=== PATIENT | female | born 1995 | race Caucasian/White ===

== ENCOUNTER → 2018-12-16 | Outpatient (CLI) | payer MEDICAID ==
--- NOTE | 2018-12-16 08:37 | US ---
EXAMINATION TYPE: Transabdominal DATE OF EXAM: 12/16/2018 8:08 AM COMPARISON: NONE CLINICAL HISTORY: Z36 Confirm dates and viability. EXAM PERFORMED: Transvaginal (TV) and Transabdominal (TA) EXAM MEASUREMENTS: GESTATIONAL AGE / DATING Physician Established: Not yet established Dates by LMP: 09/23/2018 (12 weeks/0 days) EDC: 06/30/19 Dates by First Scan: No previous this is first scan Dates by Current Scan for: No IUP seen at this time MATERNAL ANATOMY Uterus: 10.3 x 7.6 x 7.6 cm Right Ovary: 2.5 x 1.5 x 1.9 cm Left Ovary: 3.0 x 2.7 x 1.3 cm Post CDS / Adnexa: wnl Presence of free fluid: none Presence of corpus luteal cyst: not seen GESTATION / SURVEY CRL: not seen with certainty MSD: 3.6 cm (9 weeks/0 days) Yolk Sac (normal less than 6mm): 0.7cm Date of LMP: 09/23/2018 Beta HcG (if available): bloodwork being done today Gestational sac with two elliptical areas and debris. No definite pole seen. Color-flow fails to demonstrate any internal flow within the gestational sac. IMPRESSION: Abnormally enlarged yolk sac is seen within the gestational sac however no pole is identified. Additionally there is debris within the gestational sac diffusely. Findings are abnormal and given th e mean sac diameter of 3.6 cm findings are diagnostic for failed .
[2018-12-16 08:57] LABS: HCT 36.8 % (34.0-46.0); HGB 11.8 gm/dL (11.4-16.0); MCH 28.4 pg (25.0-35.0); MCV 88.8 fL (80.0-100.0); Mean Platelet Volume 7.4; Platelet Count 238 k/uL (150-450); RBC 4.15 m/uL (3.80-5.40); RDW 14.6 % (11.5-15.5); WBC 6.3 k/uL (3.8-10.6)
[2018-12-16 09:09] LABS: African American GFR (CKD) >90 (>60 ml/min/1.73 sqM); Glucose 89 mg/dL (74-99)
[2018-12-16 20:13] LABS: Hepatitis B Surface Antigen Non-Reactive (Non-Reactive)
[2018-12-17 04:16] LABS: Toxoplasma Antibody (IgG) <3.0 IU/mL (<7.2); Toxoplasma Antibody (IgM) <3.0 AU/mL (<8.0)
== END | disposition home or self-care (01) ==
LOC: RADUSWWP 07:36
PROVIDERS: ATTEND Obstetrics & Gynecology
DX: O02.89 Other abnormal products of conception (principal)
CPT/HCPCS: 36415; 76801; 76817; 82565; 82947; 84702; 85027; 86762; 86777; 86778; 86780; 86850; 86900; 86901; 87340

== ENCOUNTER → 2018-12-25 | Outpatient (CLI) | payer MEDICAID | END | disposition home or self-care (01) | LOC: LABWHC1 08:41 | PROVIDERS: ATTEND Obstetrics & Gynecology | DX: O20.0 Threatened abortion (principal) | CPT/HCPCS: 36415; 84702 ==

== ENCOUNTER → 2019-01-04 | Outpatient (CLI) | payer MEDICAID ==
--- NOTE | 2019-01-04 11:02 | US ---
EXAMINATION TYPE: Transabdominal DATE OF EXAM: 01/04/2019 10:45 AM COMPARISON: US 12/16/18 CLINICAL HISTORY: O02.0 Blighted ovum and nonhydatidiform mole. EXAM PERFORMED: Transvaginal (TV) and Transabdominal (TA) EXAM MEASUREMENTS: GESTATIONAL AGE / DATING Physician Established: Not established Dates by LMP: 09/23/18 (14 weeks/5 days) EDC: 06/30/19 Dates by First Scan: No pole seen Dates by Current Scan for: No IUP seen MATERNAL ANATOMY Uterus: 8.9 x 6.7 x 4.5 cm Right Ovary: 2.4 x 1.9 x 1.3 Left Ovary: 2.4 x 4.8 x 1.5 Post CDS / Adnexa: wnl Presence of free fluid: no Presence of corpus luteal cyst: no Presence of subchorionic bleed: no GESTATION / SURVEY CRL: Not seen MSD: Not seen Yolk Sac (normal less than 6mm): Not seen Heart Rate: Not seen bpm IUP: Not seen Date of LMP: 09/23/18 Beta HcG (if available): Thickened endometrium. Patient actively bleeding. No Gestational sac, pole or yolk sac seen thi s time. IMPRESSION: Spontaneous . The previously noted gestational sac has passed in the interim. The endometrium is slightly heterogenous measuring 1.0 cm. No current sonographic concern for retained p roducts however there is subsequent clinical concern repeat short-term ultrasound could be performed.
== END | disposition home or self-care (01) ==
LOC: RADUSWWP 10:23
PROVIDERS: ATTEND Obstetrics & Gynecology
DX: O03.9 Complete or unspecified spontaneous abortion without complication (principal); O02.0 Blighted ovum and nonhydatidiform mole
CPT/HCPCS: 76801; 76817; 84702

== ENCOUNTER 2020-10-22 10:22 | Emergency (ER) | payer MEDICAID ==
[2020-10-22 10:42] VITALS: RESP 18
--- NOTE | 2020-10-22 11:41 | ED ---
Animal Bite HPI - General Chief Complaint: Animal Bite Stated Complaint: Inquicker-Cat bite Time Seen by Provider: 10/22/20 10:56 Source: patient Mode of arrival: ambulatory Limitations: no limitations - History of Present Illness Initial Comments: Patient is a 25-year-old female presenting to the emergency Department with complaints of Bite wounds to her left hand that happened approximately 3 AM this morning. Patient states she was awoken in the night by her cat biting her left hand. She has no active bleeding at this time. Her cat is mostly in the house, is up-to-date with vaccines. Patient also update with her tetanus vaccine. She's had no fevers or chills. She has no further complaints. - Related Data Previous Rx's Medication Instructions Recorded Amoxicillin/Potassium Clav 1 tab PO BID 7 Days #14 tab 10/22/20 [Augmentin 875-125 Tablet] Allergies Allergy/AdvReac Type Severity Reaction Status Date / Time No Known Allergies Allergy Verified 10/22/20 10:38 Review of Systems ROS Statement: Those systems with pertinent positive or pertinent negative responses have been documented in the HPI. ROS Other: All systems not noted in ROS Statement are negative. Past Medical History Past Medical History: No Reported History History of Any Multi-Drug Resistant Organisms: None Reported Past Surgical History: Adenoidectomy, Tonsillectomy Additional Past Surgical History / Comment(s): NOSE SURGERY DUE TO IT BEING BROKEN. Past Anesthesia/Blood Transfusion Reactions: No Reported Reaction Past Psychological History: No Psychological Hx Reported Smoking Status: Current every day smoker Past Alcohol Use History: Daily Past Drug Use History: Prescription Drug Abuse General Exam - General Exam Comments Initial Comments: GENERAL: Patient is well-developed and well-nourished. Patient is nontoxic and in no acute distress. HEAD: Atraumatic, normocephalic. EYES: Pupils equal round and reactive to light, extraocular movements intact, sclera anicteric, conjunctiva are normal. Eyelids were unremarkable. LUNGS: Unlabored respirations. Breath sounds clear to auscultation bilaterally and equal. No wheezes rales or rhonchi. HEART: Regular rate and rhythm without murmurs, rubs or gallops. ABDOMEN: Soft, nontender, normoactive bowel sounds. No guarding, no rebound. No masses appreciated. : Deferred MUSCULOSKELETAL: Patient has multiple Bite wounds and scratches to her left hand, this is mildly swollen some mild erythema present. She has neurovascular intact. She Is able to fully extend and flex all of her fingers. No clubbing or cyanosis. NEUROLOGICAL: Patient is alert and oriented x 3. SKIN: Warm, Dry, normal turgor. She has multiple Bite wounds and abrasions to her left hand, palmar and dorsal aspects. She does have some mild swelling and erythema present. Limitations: no limitations Course Vital Signs 10/22/20 10/22/20 10:38 12:15 Temperature 98.4 F 98.0 F Pulse Rate 67 69 Respiratory 18 18 Rate Blood Pressure 117/81 127/80 O2 Sat by Pulse 100 99 Oximetry Medical Decision Making - Medical Decision Making Patient is a 25-year-old female here with multiple cat bite wounds and abrasions, scratches to her left hand that happened about 3 AM this morning. This is her house cat, up-to-date with vaccines, patient is also up-to-date with her vaccines. No fevers. She does have multiple small bite wounds and abrasions to the dorsal and palmar aspect of her left hand. She has some mild swelling present, some very mild erythema. Patient will be started on Augmentin, recommended ice, elevation. Also recommended Tylenol or Motrin for discomfort. She is agreeable to this and is stable for discharge. Return parameters were discussed with her and she verbalized understanding. Case discussed with Dr. Poon. Disposition Clinical Impression: Cat bite of left hand Disposition: HOME SELF-CARE Condition: Stable Instructions (If sedation given, give patient instructions): Animal Bite (ED) Additional Instructions: Please return to the Emergency Department if symptoms worsen or any other concerns. Please take antibiotics as prescribed. Take Tylenol and Motrin for pain and swelling control. Use ice the area, elevation. Prescriptions: Amoxicillin/Potassium Clav [Augmentin 875-125 Tablet] 1 tab PO BID 7 Days #14 tab Is patient prescribed a controlled substance at d/c from ED?: No Referrals: Suzanne Ramos MD [Primary Care Provider] - 1-2 days Time of Disposition: 11:41
[2020-10-22 12:15] VITALS: BP 127/80; PULSE 69; TEMP 98
== END 2020-10-22 12:15 | disposition home or self-care (01) ==
LOC: EC 10:22
DX: S61.452A Open bite of left hand, initial encounter (principal); F17.200 Nicotine dependence, unspecified, uncomplicated; W55.01XA Bitten by cat, initial encounter
CPT/HCPCS: 99283

== ENCOUNTER 2020-10-23 12:29 | Inpatient (IN) | payer MEDICAID ==
[2020-10-23] MEDS ORDERED: KETOROLAC 15 MG/ML 1 ML VIAL IVP STA (13:23)
[2020-10-23] MEDS ORDERED: AMPICILLIN-SULBACTAM 3 GM in SODIUM CHLORIDE 0.9% 100 ML IVPB STA (13:24)
[2020-10-23] MEDS ORDERED: IBUPROFEN 400 MG TAB PO PRN (13:46)
[2020-10-23] MEDS ORDERED: KETOROLAC 15 MG/ML 1 ML VIAL IVP PRN (13:46)
--- NOTE | 2020-10-23 13:54 | ED ---
Animal Bite HPI - General Chief Complaint: Animal Bite Stated Complaint: cat bite-revisit Time Seen by Provider: 10/23/20 13:13 Source: patient, family Mode of arrival: ambulatory - History of Present Illness Initial Comments: Patient is a 25-year-old female presenting to the emergency Department with complaints of a worsening wound on her left hand. Patient was seen yesterday, evaluated for Bites and abrasions to her left hand that happened earlier that same day. She was started antibiotics. Patient returns today for worsening redness, pain and swelling. She denies any fevers, nausea or vomiting. Her appetite has been normal. Patient is up-to-date with her tetanus. She has been taking her antiemetics since yesterday. She has no chest pain or short of breath, no abdominal pain. She denies being . She has no further complaints. - Related Data Previous Rx's Medication Instructions Recorded Amoxicillin/Potassium Clav 1 tab PO BID 7 Days #14 tab 10/22/20 [Augmentin 875-125 Tablet] Allergies Allergy/AdvReac Type Severity Reaction Status Date / Time No Known Allergies Allergy Verified 10/22/20 10:38 Review of Systems ROS Statement: Those systems with pertinent positive or pertinent negative responses have been documented in the HPI. ROS Other: All systems not noted in ROS Statement are negative. Past Medical History Past Medical History: No Reported History History of Any Multi-Drug Resistant Organisms: None Reported Past Surgical History: Adenoidectomy, Tonsillectomy Additional Past Surgical History / Comment(s): NOSE SURGERY DUE TO IT BEING BROKEN. Past Anesthesia/Blood Transfusion Reactions: No Reported Reaction Past Psychological History: No Psychological Hx Reported Smoking Status: Current every day smoker Past Alcohol Use History: Daily Past Drug Use History: Prescription Drug Abuse General Exam - General Exam Comments Initial Comments: GENERAL: Patient is well-developed and well-nourished. Patient is nontoxic and in no acute distress. HEAD: Atraumatic, normocephalic. EYES: Pupils equal round and reactive to light, extraocular movements intact, sclera anicteric, conjunctiva are normal. Eyelids were unremarkable. ENT: Moist mucous membranes. NECK: Normal range of motion, supple without lymphadenopathy or JVD. LUNGS: Unlabored respirations. Breath sounds clear to auscultation bilaterally and equal. No wheezes rales or rhonchi. HEART: Regular rate and rhythm without murmurs, rubs or gallops. ABDOMEN: Soft, nontender, normoactive bowel sounds. MUSCULOSKELETAL: She has a moderate swelling of the left hand, fingers and into the left wrist. She has painful active range of motion, increases with extension. She has neurovascular intact, left of erythema, spreading up to the mid of the left forearm. No clubbing or cyanosis. NEUROLOGICAL: Patient is alert and oriented x 3. SKIN: Warm, Dry, normal turgor. Patient has multiple puncture wounds and lesions to the left hand from cat, moderate swelling, erythema, spreading cellulitis to the mid left forearm. Course Vital Signs 10/23/20 13:08 Temperature 98.2 F Pulse Rate 63 Respiratory 18 Rate Blood Pressure 122/73 O2 Sat by Pulse 100 Oximetry Medical Decision Making - Medical Decision Making Patient is a 25-year-old female here with worsening cellulitis of the left hand from cat bite injury that happened earlier yesterday morning. She was started on antibiotics yesterday. She has no fevers today. Erythema and swelling are worsening, erythema is up-to-date in mid left forearm. Basic labs, CRP, ESR are pending at this time, patient be started on Unasyn and admitted for cellulitis, orthopedics on consult. Patient accepted by Dr. Forde. Case discussed with Dr. Poon. Disposition Clinical Impression: Cellulitis of left hand, Cat bite Disposition: ADMITTED IP TO THIS HOSP Condition: Stable Referrals: Suzanne Ramos MD [Primary Care Provider] - 1-2 days Decision Date: 10/23/20 Decision Time: 13:54
[2020-10-23 14:15] LABS: Basophils % (A) 1 %; Eosinophils # (A) 0.1 k/uL (0-0.7); Eosinophils % (A) 1 %; HCT 41.1 % (34.0-46.0); HGB 14.1 gm/dL (11.4-16.0); Lymphocytes # (A) 1.7 k/uL (1.0-4.8); Lymphocytes % (A) 24 %; MCH 33.7 pg (25.0-35.0); MCHC 34.3 g/dL (31.0-37.0); MCV 98.4 fL (80.0-100.0); Mean Platelet Volume 8.3; Monocytes # (A) 0.6 k/uL (0-1.0); Monocytes % (A) 8 %; Neutrophils # (A) 4.6 k/uL (1.3-7.7); Neutrophils % (A) 65 %; Platelet Count 236 k/uL (150-450); RBC 4.17 m/uL (3.80-5.40); RDW 11.7 % (11.5-15.5); WBC 7.1 k/uL (3.8-10.6)
[2020-10-23 14:34] LABS: ALT 38 U/L (4-34); AST 39 U/L (14-36); African American GFR (CKD) >90 (>60 ml/min/1.73 sqM); Albumin 4.5 g/dL (3.5-5.0); Alkaline Phosphatase 82 U/L (38-126); Anion Gap 7 mmol/L; Blood Urea Nitrogen 7 mg/dL (7-17); C Reactive Protein 1.4 mg/dL (<1.0); Calcium 9.6 mg/dL (8.4-10.2); Carbon Dioxide 28 mmol/L (22-30); Chloride 103 mmol/L (98-107); Glucose 78 mg/dL (74-99); Non-African American GFR(CKD) >90 (>60 ml/min/1.73 sqM); Potassium 3.6 mmol/L (3.5-5.1); Sodium 138 mmol/L (137-145); Total Bilirubin 0.3 mg/dL (0.2-1.3); Total Protein 7.1 g/dL (6.3-8.2)
[2020-10-23 15:07] LABS: Erythrocyte Sedimentation Rate 2 mm/hr (0-20)
--- NOTE | 2020-10-23 15:36 | P.CNOR ---
History of Present Illness - [facility] Consult date: 10/23/20 Consult reason: other (Left hand cellulitis, multiple abrasions/puncture wounds status post cat bite) History of present illness: Patient is a 25-year-old female who presented to [facility] today for recheck of her left hand. Patient was seen and [facility] yesterday after being bitten by her Multiple times involving the left upper extremity. She was started on oral antibiotics and sent home, she reported back to the hospital today because symptoms including the redness and pain have worsened. Patient was admitted to [facility] under internal medicine, our orthopedic team was consulted. Patient was evaluated today in the emergency room, she is resting comfortably in a hospital bed. She notes most of discomfort on the dorsum of her left hand wh ere the main puncture wounds are. There is erythema noted, this trended past the hand and into the lower forearm. She notes minimal discomfort at this time on the palmar aspect of the hand, there are no puncture wounds present there. There are a few abrasions noted on the palmar aspect of the lower wrist and thumb area. Patient is able to wiggle all the fingers and minimal difficulty, she feels tightness on the dorsum of the hand when she attempts to make a fist. She denies any upper forearm pain, elbow pain, shoulder pain at this time. She has no other orthopedic complaints this time. She currently denies any fever or chills at this time. Review of Systems Constitutional: Reports as per [facility] Past Medical History Past Medical History: No Reported History History of Any Multi-Drug Resistant Organisms: None Reported Past Surgical History: Adenoidectomy, Tonsillectomy Additional Past Surgical History / Comment(s): NOSE SURGERY DUE TO IT BEING BROKEN. Past Anesthesia/Blood Transfusion Reactions: No Reported Reaction Past Psychological History: No Psychological Hx Reported Smoking Status: Current every day smoker Past Alcohol Use History: Daily Past Drug Use History: Prescription Drug Abuse Medications and Allergies Home Medications Medication Instructions Recorded Confirmed Type Amoxicillin/Potassium Clav 1 tab PO BID 7 Days #14 tab 10/22/20 10/23/20 Rx [Augmentin 875-125 Tablet] Acetaminophen Tab [Tylenol Tab] 1,000 mg PO Q6HR PRN 10/23/20 10/23/20 History Ibuprofen [Motrin Ib] 400 - 800 mg PO Q8H PRN 10/23/20 10/23/20 History Allergies Allergy/AdvReac Type Severity Reaction Status Date / Time No Known Allergies Allergy Verified 10/23/20 14:28 Physical Examination Left hand: There is obvious erythema noted on the dorsum of the hand and extend the wrist and lower forearm There are numerous puncture wound on the dorsum of the hand, there are a few just proximal to the MCP of the third digit and fourth digit, there is also one present at the base of the thumb. There is no obvious drainage appreciated at this time. Generalized soft tissue swelling is appreciated with palpation, no significant areas of fluctuance present. There is no significant erythema noted on the palmar aspect of the hand Patient has generalized tenderness with palpation throughout the dorsum of the hand, there is minimal tenderness with palpation throughout the palmar aspect of the hand. She demonstrates no tenderness with palpation of the upper forearm or elbow. She is able to wiggle all fingers with minimal difficulty, difficulty making a fist due to the tightness on the dorsum of the hand Full range of motion is intact at the elbow, this is all painless Sensory exam to light touch throughout the extremity is intact, the radial and ulnar pulses are 2+ Results - Labs Labs: Abnormal Lab Results - Last 24 Hours (Table) 10/23/20 Range/Units 13:48 Creatinine 0.50 L (0.52-1.04) mg/dL AST 39 H (14-36) U/L ALT 38 H (4-34) U/L C-Reactive Protein 1.4 H (<1.0) mg/dL H & H 10/23/20 Range/Units 13:48 Hgb 14.1 (11.4-16.0) gm/dL Hct 41.1 (34.0-46.0) % Result Diagrams: 10/23/20 13:48 10/23/20 13:48 Assessment and Plan Assessment: Left hand/forearm cellulitis Left dorsum hand multiple puncture wounds Status post cat bite Plan: I was able to discuss the case concluded with physical exam findings and imaging studies my attending Dr. Day X-rays the left hand were ordered, awaiting results Recommend continuation of IV antibiotics at this time Patient will be tentatively boarded for an incision and drainage and irrigation and debridement of the puncture wounds for 10/24/2020 Nothing by mouth after midnight Obtain consent Pain control, continue with current medications Other medical special recommendations Time with Patient: Less than 30
--- NOTE | 2020-10-23 15:48 | XR ---
EXAMINATION TYPE: XR hand complete LT DATE OF EXAM: 10/23/2020 COMPARISON: None HISTORY: Hand pain, cat bite TECHNIQUE: 3 view left hand FINDINGS: No acute fracture or dislocation is evident. There is diffuse soft tissue swelling. Punctat e densities in the soft tissues between the fourth and third metacarpal on the AP projection may be d orsal on the lateral view. Small foreign body is not excluded. This appears to be a small calcificati on. IMPRESSION: 1. Diffuse soft tissue swelling. There may be a small calcification within the dorsum of the hand. R adiopaque foreign body is not excluded. 2. No acute osseous abnormality.
--- NOTE | 2020-10-23 17:20 | P.HPIM ---
History of Present Illness 25-year-old female came in for right cat bite wound of the left hand. Patient was seen in ER for the same yesterday patient was sent home on Augmentin without any improve and patient had this cat bite yesterday morning multiple bites. Patient has worsening swelling and redness because of which patient was admitted with consult orthopedic surgery. Patient doesn't have any leukocytosis no fever. There multiple puncture wounds from cat bite. REVIEW OF SYSTEMS: CONSTITUTIONAL: No fever, no malaise, no fatigue. HEENT: No recent visual problems or hearing problems. Denied any sore throat. CARDIOVASCULAR: No chest pain, orthopnea, PND, no palpitations, no syncope. PULMONARY: No shortness of breath, no cough, no hemoptysis. GASTROINTESTINAL: No diarrhea, no nausea, no vomiting, no abdominal pain. NEUROLOGICAL: No headaches, no weakness, no numbness. HEMATOLOGICAL: Denies any bleeding or petechiae. GENITOURINARY: Denies any burning micturition, frequency, or urgency. MUSCULOSKELETAL/RHEUMATOLOGICAL: As mentioned in HPI ENDOCRINE: Denies any polyuria or polydipsia. The rest of the 14-point review of systems is negative. PHYSICAL EXAMINATION: GENERAL: The patient is alert and oriented x3, not in any acute distress. Well developed, well nourished. HEENT: Pupils are round and equally reacting to light. EOMI. No scleral icterus. No conjunctival pallor. Normocephalic, atraumatic. No pharyngeal erythema. No thyromegaly. CARDIOVASCULAR: S1 and S2 present. No murmurs, rubs, or gallops. PULMONARY: Chest is clear to auscultation, no wheezing or crackles. ABDOMEN: Soft, nontender, nondistended, normoactive bowel sounds. No palpable organomegaly. MUSCULOSKELETAL: No joint swelling or deformity. EXTREMITIES: No cyanosis, clubbing, or pedal edema. Has significantly swelling of the left upper extremity swelling extends up to the forearm there multiple puncture wounds from cat bite NEUROLOGICAL: Gross neurological examination did not reveal any focal deficits. SKIN: No rashes. Assessment and plan From cat bite cellulitis of the significance swelling and inflammation of the left arm because of which are chronic surgery was consulted patient was started on Unasyn which will be continued we will use Toradol for pain along with GI prophylaxis -Very mild nonspecific elevation of liver enzymes no further workup is necessary at this time. DVT prophylaxis: Ambulation Past Medical History Past Medical History: No Reported History History of Any Multi-Drug Resistant Organisms: None Reported Past Surgical History: Adenoidectomy, Tonsillectomy Additional Past Surgical History / Comment(s): NOSE SURGERY DUE TO IT BEING BROKEN. Past Anesthesia/Blood Transfusion Reactions: No Reported Reaction Past Psychological History: No Psychological Hx Reported Smoking Status: Current every day smoker Past Alcohol Use History: Daily Additional Past Alcohol Use History / Comment(s): Patient is a smoker one pack per week. She denies any marijuana, street drug use. She drinks 2-3 glasses of alcohol per week. She lives at home with [facility]. There is a new cat in the home but no other animal exposures. Past Drug Use History: Prescription Drug Abuse Medications and Allergies Home Medications Medication Instructions Recorded Confirmed Type Amoxicillin/Potassium Clav 1 tab PO BID 7 Days #14 tab 10/22/20 10/23/20 Rx [Augmentin 875-125 Tablet] Acetaminophen Tab [Tylenol Tab] 1,000 mg PO Q6HR PRN 10/23/20 10/23/20 History Ibuprofen [Motrin Ib] 400 - 800 mg PO Q8H PRN 10/23/20 10/23/20 History Allergies Allergy/AdvReac Type Severity Reaction Status Date / Time No Known Allergies Allergy Verified 10/23/20 14:28 Physical Exam Vitals: Vital Signs Temp Pulse Pulse Resp BP BP Pulse Ox 10/23/20 16:53 98.0 F 94 16 116/73 100 10/23/20 15:57 98.1 F 64 18 109/73 99 10/23/20 15:46 98.1 F 64 18 109/73 99 10/23/20 13:08 98.2 F 63 18 122/73 100 Intake and Output 10/23/20 10/23/20 10/23/20 06:59 14:59 22:59 Intake Total 200 Balance 200 Intake: Intake, IV Titration 200 Amount Ampicillin-Sulbactam 3 gm 200 In Sodium Chloride 0.9% 100 ml @ 200 mls/hr IVPB ONCE STA Rx#:[id number] Other: Weight 56.699 kg 56.699 kg Results CBC & Chem 7: 10/23/20 13:48 10/23/20 13:48 Labs: Abnormal Lab Results - Last 24 Hours (Table) 10/23/20 Range/Units 13:48 Creatinine 0.50 L (0.52-1.04) mg/dL AST 39 H (14-36) U/L ALT 38 H (4-34) U/L C-Reactive Protein 1.4 H (<1.0) mg/dL Thrombosis Risk Factor Assmnt - Choose All That Apply Any of the Below Risk Factors Present?: No Other Risk Factors: No Other congenital or acquired thrombophilia - If yes, enter type in comment: No Thrombosis Risk Factor Assessment Level: Very Low Risk
[2020-10-23] MEDS: AMPICILLIN-SULBACTAM 3 GM in SODIUM CHLORIDE 0.9% 100 ML IVPB SCH (20:11)
[2020-10-23] MEDS: FAMOTIDINE 20 MG TAB PO SCH (20:11)
[2020-10-24] MEDS: AMPICILLIN-SULBACTAM 3 GM in SODIUM CHLORIDE 0.9% 100 ML IVPB SCH ×4 (02:06→20:11)
[2020-10-24] MEDS: FAMOTIDINE 20 MG TAB PO SCH ×2 (08:07→20:09)
--- NOTE | 2020-10-24 08:28 | P.PN ---
Subjective Progress Note Date: 10/24/20 Principal diagnosis: Left hand cellulitis, left hand puncture wound status post A Patient evaluated today, she is sleeping upon arrival, she is easily awoken. She states hand is still feeling quite painful on the dorsal aspect. She denies any fever or chills. She denies any pain involving the proximal forearm, elbow or shoulder. She denies any headaches, lightheadedness, chest pain, shortness of breath, nausea vomiting Objective - Vital Signs Vital signs: Vital Signs Temp 98.3 F 10/24/20 05:00 Pulse 57 L 10/24/20 05:00 Resp 18 10/24/20 05:00 BP 98/65 10/24/20 05:00 Pulse Ox 98 10/24/20 05:00 Intake & Output 10/23/20 10/24/20 10/24/20 18:59 06:59 18:59 Intake Total 200 200 Balance 200 200 Weight 56.699 kg Intake: Intake, IV Titration 200 200 Amount Ampicillin-Sulbactam 3 gm 200 In Sodium Chloride 0.9% 100 ml @ 200 mls/hr IVPB ONCE ST[facility] Rx#:[id number] Ampicillin-Sulbactam 3 gm 200 In Sodium Chloride 0.9% 100 ml @ 200 mls/hr IVPB Q6H [facility] Rx#:[id number] Oral 0 Other: Voiding Method Toilet # Voids 2 - Exam Left upper extremity:, This is improved since yesterday There is obvious erythema noted on the dorsum of the hand and extend the wrist and lower forearm There are numerous puncture wound on the dorsum of the hand, there are a few just proximal to the MCP of the third digit and fourth digit, there is also one present at the base of the thumb. There is no obvious drainage appreciated at this time. Generalized soft tissue swelling is appreciated with palpation, no significant areas of fluctuance present. There is no significant erythema noted on the palmar aspect of the hand Patient has generalized tenderness with palpation throughout the dorsum of the hand, there is minimal tenderness with palpation throughout the palmar aspect of the hand. She demonstrates no tenderness with palpation of the upper forearm or elbow. She is able to wiggle all fingers with minimal difficulty, difficulty making a fist due to the tightness on the dorsum of the hand Full range of motion is intact at the elbow, this is all painless Sensory exam to light touch throughout the extremity is intact, the radial and ulnar pulses are 2+ - Labs CBC & Chem 7: 10/23/20 13:48 10/23/20 13:48 Labs: Abnormal Lab Results - Last 24 Hours (Table) 10/23/20 Range/Units 13:48 Creatinine 0.50 L (0.52-1.04) mg/dL AST 39 H (14-36) U/L ALT 38 H (4-34) U/L C-Reactive Protein 1.4 H (<1.0) mg/dL Assessment and Plan Assessment: Left hand/forearm cellulitis Left dorsum hand multiple puncture wounds Status post cat bite Plan: With patient's current symptoms, recommended incision and drainage with irrigation and debridement of the puncture wounds of the left hand. We are planning for surgery on 10/24/2020 Continue nothing by mouth diet at this time X-ray images were reviewed, no acute fractures or dislocations present in the left hand. There is possibility of a small foreign body noted between the third and fourth metacarpal Recommend continuation of IV antibiotics at this time Obtain consent Pain control, continue with current medications Further recommendations following surgery
[2020-10-24] MEDS ORDERED: LACTATED RINGERS 1,000 ML IV ONE (12:52)
[2020-10-24] MEDS ORDERED: LIDOCAINE 1% (10MG/ML) FOR IV START INTRADERMA ONE (12:53)
[2020-10-24] MEDS ORDERED: MIDAZOLAM 2 MG/2 ML VIAL ONE (13:29)
[2020-10-24] MEDS ORDERED: fentaNYL (PF) 50 MCG/ML 2 ML AMP ONE (13:29)
[2020-10-24] MEDS ORDERED: PROPOFOL 10 MG/ML 20 ML VIAL IV ONE (13:29)
[2020-10-24] MEDS ORDERED: LIDOCAINE 1% INJ 10MG/ML (20 ML MDV) ONE (13:29)
--- NOTE | 2020-10-24 14:21 | P.OP ---
Date of Procedure: 10/24/20 Preoperative Diagnosis: Left hand cellulitis status post cat bites Postoperative Diagnosis: Same Procedure(s) Performed: Incision and drainage with irrigation and debridement left dorsal hand cellulitis/abscesses Anesthesia: NARENA Surgeon: Stewart Day Estimated Blood Loss (ml): 2 Pathology: none sent Condition: stable Disposition: PACU Indications for Procedure: The patient is a 25-year-old female who recently sustained multiple cat bites to her left hand and forearm who presented with increasing swelling/erythema/drainage. A discussion of the risks and benefits of incision and drainage with irrigation and debridement was made with patient. She opted to proceed. Specific risks to include persistence of infection and need for subsequent procedures was discussed. Informed consent was obtained. Operative Findings: As below Description of Procedure: The patient was brought to the operating room, and after induction of general anesthesia the left upper extremity was prepped and draped in normal fashion. The tourniquet was inflated to 250 mmHg. 4 separate incisions were made over the dorsum of the left hand centered over the cat bites and areas purulence. 2 were over the third and fourth metacarpal shafts a third one was centered over the index metacarpal base and the fourth in the first dorsal webspace. The skin was incised sharply with scalpel extending approximately 4-5 mm over each section. A small amount of purulence was expressed from each. These were then copiously irrigated/debrided by lavage with normal saline. No foreign body was found in the soft tissues. This did not appear to extend past the subcutaneous tissues. No sharp debridement was required. The skin edges were loosely reapproximated with simple 3-0 nylon suture. A sterile dressing was applied. The tourniquet was deflated less than 20 minutes total tourniquet time. Blood loss was estimated at 2 mL. No complications were incurred. Sponge and needle counts were correct at the end of the case.
--- NOTE | 2020-10-24 16:35 | P.PN ---
Subjective Progress Note Date: 10/24/20 25-year-old female came in for right cat bite wound of the left hand. Patient was seen in ER for the same yesterday patient was sent home on Augmentin without any improve and patient had this cat bite yesterday morning multiple bites. Patient has worsening swelling and redness because of which patient was admitted with consult orthopedic surgery. Patient doesn't have any leukocytosis no fever. There multiple puncture wounds from cat bite. 10/24/2020 Patient is seen this morning with no acute overnight issues noted. Patient continues on IV antibiotics in the form of Unasyn and will continue. Patient was seen and evaluated by orthopedics and scheduled to undergo incision and drainage with debridement of the left hand. Will continue current pain medications and adjust as needed. Infectious disease consulted and appreciate antibiotic recommendations. Will repeat a.m. labs as well. Review of systems: Constitutional: No reports of fatigue, fever, or chills, reports left hand swelling and redness with some discomfort Cardiovascular: No reports of chest pain or palpitations Respiratory: No reports of shortness of breath or cough GI: No reports of nausea, vomiting, or diarrhea : No reports of dysuria or retention Neurovascular: No reports of weakness or numbness All medications have been reviewed PHYSICAL EXAMINATION: GENERAL: The patient is alert and oriented x3, not in any acute distress. Well developed, well nourished. HEENT: Pupils are round and equally reacting to light. EOMI. No scleral icterus. No conjunctival pallor. Normocephalic, atraumatic. No pharyngeal erythema. No thyromegaly. CARDIOVASCULAR: S1 and S2 present. No murmurs, rubs, or gallops. PULMONARY: Chest is clear to auscultation, no wheezing or crackles. ABDOMEN: Soft, nontender, nondistended, normoactive bowel sounds. No palpable organomegaly. MUSCULOSKELETAL: No joint swelling or deformity. EXTREMITIES: No cyanosis, clubbing, or pedal edema. Has significantly swelling of the left hand dorsum that extends up to the forearm there multiple puncture wounds from cat bite, swelling has improved of the forearm NEUROLOGICAL: Gross neurological examination did not reveal any focal deficits. SKIN: No rashes. Assessment and plan: -cellulitis of the left hand extending up to the left forearm with significant swelling and redness secondary to cat bites and abrasions from her cat. Patient continues on Unasyn and infectious disease consulted for further antibiotic management. Orthopedics following and planning on I&D with debridement of the area -Status post incision and drainage with debridement with orthopedics of the left hand -Very mild nonspecific elevation of liver enzymes no further workup is necessary at this time. -GI prophylaxis -DVT prophylaxis: Early ambulation Objective - Vital Signs Vital signs: Vital Signs Temp 98.3 F 10/24/20 05:00 Pulse 57 L 10/24/20 05:00 Resp 18 10/24/20 05:00 BP 98/65 10/24/20 05:00 Pulse Ox 98 10/24/20 05:00 Intake & Output 10/23/20 10/24/20 10/24/20 18:59 06:59 18:59 Intake Total 200 200 Balance 200 200 Weight 56.699 kg Intake: Intake, IV Titration 200 200 Amount Ampicillin-Sulbactam 3 gm 200 In Sodium Chloride 0.9% 100 ml @ 200 mls/hr IVPB ONCE STA Rx#:[id number] Ampicillin-Sulbactam 3 gm 200 In Sodium Chloride 0.9% 100 ml @ 200 mls/hr IVPB Q6H [facility] Rx#:[id number] Oral 0 Other: Voiding Method Toilet # Voids 2 - Labs CBC & Chem 7: 10/23/20 13:48 10/23/20 13:48 Labs: Abnormal Lab Results - Last 24 Hours (Table) 10/23/20 Range/Units 13:48 Creatinine 0.50 L (0.52-1.04) mg/dL AST 39 H (14-36) U/L ALT 38 H (4-34) U/L C-Reactive Protein 1.4 H (<1.0) mg/dL
[2020-10-24] MEDS: ACETAMINOPHEN TAB 325 MG TAB PO PRN (20:08)
--- NOTE | 2020-10-24 21:27 | P.CONS ---
History of Present Illness - Reason for Consult Consult date: 10/24/20 Left hand abscess Requesting physician: Trudy Miller - Chief Complaint left hand pain and swelling x 3 days - History of Present Illness Patient is a 25-year female who was brought into the ER yesterday afternoon for evaluation of pain and swelling to the left hand patient had did have a left hand cat bite multiple x2 days before presentation to the hospital patient states she was trying to break up a fight between 2 cats when she got bit by them multiple times on the left hand patient started having a swelling and redness to the left hand describing the pain to be throbbing intensity almost 10 in severity with worsening swelling and redness patient was seen in the ER initially and after some local treatment was discharged patient presented back to the hospital within 24 hours with worsening swelling and redness this time the patient was evaluated again patient on presentation hospital was afebrile patient did have a normal white count did have x-rays of the hand which showed diffuse soft tissue swelling small calcification within the dorsum of the hand radiopaque foreign body is not excluded patient was evaluated by orthopedics he was taken to the OR this afternoon and the patient is status post incision and drainage with irrigation and debridement of the left hand her dorsal wound unfortunately no cultures were done patient is currently being treated with Unasyn infectious disease was consulted for further management of antibiotic therapy Review of Systems Positive point has been mentioned in the HPI rest of the systems are negative Past Medical History Past Medical History: No Reported History History of Any Multi-Drug Resistant Organisms: None Reported Past Surgical History: Adenoidectomy, Tonsillectomy Additional Past Surgical History / Comment(s): NOSE SURGERY DUE TO IT BEING BROKEN. Past Anesthesia/Blood Transfusion Reactions: No Reported Reaction Past Psychological History: No Psychological Hx Reported Smoking Status: Current every day smoker Past Alcohol Use History: Daily Additional Past Alcohol Use History / Comment(s): Patient is a smoker one pack per week. She denies any marijuana, street drug use. She drinks 2-3 glasses of alcohol per week. She [facility] at [facility] [place] There is a new cat in the home but no other animal exposures. Past Drug Use History: Prescription Drug Abuse Medications and Allergies Home Medications Medication Instructions Recorded Confirmed Type Amoxicillin/Potassium Clav 1 tab PO BID 7 Days #14 tab 10/22/20 10/23/20 Rx [Augmentin 875-125 Tablet] Acetaminophen Tab [Tylenol Tab] 1,000 mg PO Q6HR PRN 10/23/20 10/23/20 History Ibuprofen [Motrin Ib] 400 - 800 mg PO Q8H PRN 10/23/20 10/23/20 History Allergies Allergy/AdvReac Type Severity Reaction Status Date / Time No Known Allergies Allergy Verified 10/23/20 14:28 Physical Exam Vitals: Vital Signs Temp Pulse Pulse Resp BP BP Pulse Ox 10/24/20 15:00 57 L 16 110/72 100 10/24/20 14:45 51 L 16 112/62 100 10/24/20 14:30 54 L 16 112/62 100 10/24/20 14:15 97.6 F 80 14 105/62 99 10/24/20 12:26 97.9 F 54 L 16 115/71 99 10/24/20 11:40 98.5 F 59 L 17 106/70 100 10/24/20 05:00 98.3 F 57 L 18 98/65 98 10/23/20 20:00 99.0 F 78 18 113/74 99 10/23/20 16:53 98.0 F 94 16 116/73 100 10/23/20 15:57 98.1 F 64 18 109/73 99 10/23/20 15:46 98.1 F 64 18 109/73 99 Intake and Output 10/24/20 10/24/20 10/24/20 06:59 14:59 22:59 Intake Total 100 700 200 Output Total 2 Balance 100 698 200 Intake: IV 700 200 Intake, IV Titration 100 Amount Ampicillin-Sulbactam 3 gm 100 In Sodium Chloride 0.9% 100 ml @ 200 mls/hr IVPB Q6H [facility] Rx#:[id number] Oral 0 Output: Estimated Blood Loss 2 Other: # Voids 2 Weight 56.699 kg 56.699 kg GENERAL DESCRIPTION: Middle-aged female lying in bed, no distress. No tachypnea or accessory muscle of respiration use. HEENT: Shows Pallor , no scleral icterus. Oral mucous membrane is dry. No pharyngeal erythema or thrush NECK: Trachea central, no thyromegaly. LUNGS: Unlabored breathing. Clear to auscultation anteriorly. No wheeze or crackle. HEART: S1, S2, regular rate and rhythm. No loud murmur ABDOMEN: Soft, no tenderness , guarding or rigidity, no organomegaly EXTREMITIES: Left hand currently dressed in OR dressing no drainage on the dressing SKIN: No rash, no masses palpable. NEUROLOGICAL: The patient is awake, alert, oriented x3, mood and affect normal. Results CBC & Chem 7: 10/23/20 13:48 10/23/20 13:48 Assessment and Plan Assessment: patient with her left hand extensive cat bite cellulitis and abscess in this patient who is status post debridement of the left hand abscess, cultures were not done no blood culture has been done we will need to cover for the oral teddy of the cath due to the likely pathogen with the discharge antibiotic depending upon the clinical response and may include IV biotic in view of the extensive infection this was explained to the patient and the mother in layman terms (1) Cat bite Current Visit: Yes Status: Acute Code(s): W55.01XA - BITTEN BY CAT, INITIAL ENCOUNTER SNOMED Code(s): 752010487 (2) Cellulitis of left hand Current Visit: Yes Status: Acute Code(s): L03.114 - CELLULITIS OF LEFT UPPER LIMB SNOMED Code(s): 43816975 Plan: 1-Unasyn 3 g every 6 hours 2-we will evaluate the wound tomorrow after the dressing be changed by the surgery Multiple questions were answered in layman term We will follow on clinical condition and cultures to further adjust medication if needed Thank you for this consultation we will follow the patient along with you
[2020-10-25] MEDS: AMPICILLIN-SULBACTAM 3 GM in SODIUM CHLORIDE 0.9% 100 ML IVPB SCH ×4 (01:19→19:35)
[2020-10-25] MEDS: FAMOTIDINE 20 MG TAB PO SCH ×2 (08:52→19:34)
[2020-10-25 10:07] LABS: Basophils % (A) 1 %; Eosinophils # (A) 0.1 k/uL (0-0.7); Eosinophils % (A) 2 %; HCT 38.9 % (34.0-46.0); HGB 12.7 gm/dL (11.4-16.0); Lymphocytes # (A) 1.5 k/uL (1.0-4.8); Lymphocytes % (A) 32 %; MCH 32.4 pg (25.0-35.0); MCHC 32.7 g/dL (31.0-37.0); MCV 99.2 fL (80.0-100.0); Mean Platelet Volume 9.1; Monocytes # (A) 0.5 k/uL (0-1.0); Monocytes % (A) 10 %; Neutrophils # (A) 2.4 k/uL (1.3-7.7); Neutrophils % (A) 53 %; Platelet Count 197 k/uL (150-450); RBC 3.92 m/uL (3.80-5.40); RDW 11.9 % (11.5-15.5); WBC 4.6 k/uL (3.8-10.6)
[2020-10-25 10:23] LABS: African American GFR (CKD) >90 (>60 ml/min/1.73 sqM); Anion Gap 6 mmol/L; Blood Urea Nitrogen 9 mg/dL (7-17); Calcium 9.1 mg/dL (8.4-10.2); Carbon Dioxide 26 mmol/L (22-30); Chloride 105 mmol/L (98-107); Glucose 114 mg/dL (74-99); Non-African American GFR(CKD) >90 (>60 ml/min/1.73 sqM); Potassium 4.2 mmol/L (3.5-5.1); Sodium 137 mmol/L (137-145)
--- NOTE | 2020-10-25 12:12 | P.PN ---
Subjective Progress Note Date: 10/25/20 Principal diagnosis: Left hand cellulitis, left hand puncture wounds Patient evaluated today at bedside, she is resting comfortably. She says the hand is feeling a lot better since surgery. She denies any worsening redness. She denies any drainage from the incisions. She denies any fever or chills. She denies shortness of breath or chest pain. Objective - Vital Signs Vital signs: Vital Signs Temp 98.1 F 10/25/20 11:48 Pulse 62 10/25/20 11:48 Resp 17 10/25/20 11:48 BP 101/68 10/25/20 11:48 Pulse Ox 100 10/25/20 11:48 Intake & Output 10/24/20 10/25/20 10/25/20 18:59 06:59 18:59 Intake Total 1100 Output Total 2 Balance 1098 Weight 56.699 kg Intake: IV 900 Intake, IV Titration 200 Amount Ampicillin-Sulbactam 3 gm 200 In Sodium Chloride 0.9% 100 ml @ 200 mls/hr IVPB Q6H [facility] Rx#:[id number] Output: Estimated Blood Loss 2 Other: Voiding Method Toilet Toilet # Voids 1 - Exam Left upper extremity: Erythema over the dorsum of the hand/wrist is improved significantly Therefore nylon sutures present over the puncture wounds on the dorsum of the hand, they are all in good position condition. No drainage is appreciated. No significant areas of erythema or fluctuance appreciated. She is able to wiggle all fingers with minimal difficulty, she is able to make a full fist Full range of motion is intact at the elbow, this is all painless Sensory exam to light touch throughout the extremity is intact, the radial and ulnar pulses are 2+ - Labs CBC & Chem 7: 10/25/20 09:47 10/25/20 09:47 Labs: Abnormal Lab Results - Last 24 Hours (Table) 10/24/20 10/25/20 Range/Units 16:28 09:47 Creatinine 0.51 L (0.52-1.04) mg/dL Glucose 114 H (74-99) mg/dL C-Reactive Protein 1.7 H (<1.0) mg/dL Assessment and Plan Assessment: Left hand/forearm cellulitis Left dorsum hand multiple puncture wounds Status post cat bite Status post I&D left hand Plan: Discussed with nursing staff today infectious disease recommendations. They're recommending 1 additional night of IV antibiotics with hopeful transition oral medications Wound care instructions were discussed, recommended heavier dressing over the next day or 2. After 3-4 days postop, simple bandages are fine. We discussed activity restrictions and possible time off work. Pain control, continue with current medications Further recommendations following surgery Discharge planning: hopeful discharge to home tomorrow Time with Patient: Less than 30
--- NOTE | 2020-10-25 16:45 | PN ---
PROGRESS NOTE DATE OF SERVICE: 10/25/2020 REASON FOR FOLLOWUP: Left hand cat bite cellulitis and abscess. INTERVAL HISTORY: Patient is afebrile. The patient is breathing comfortably. No chest pain, shortness of breath or cough. No abdominal pain. Overall pain and discomfort to the left has decreased. PHYSICAL EXAMINATION: Blood pressure 101/68 with a pulse of 72, temperature 98.1. She is 100% on room air. General description is a young female lying in bed in no distress. Respiratory system: Unlabored breathing, clear to auscultation anteriorly. Heart S1, S2. Regular rate and rhythm. Abdomen soft, no tenderness. Left hand swelling and redness has slightly decreased. LABS: Hemoglobin is 12.1, white count 4.6, BUN of 10, creatinine 0.51. DIAGNOSTIC IMPRESSION/PLAN: Left hand cellulitis status post drainage. The patient has shown overall improvement. Plan is to continue on IV Unasyn today and continue to finish therapy with oral Augmentin b.i.d. for 2 weeks and close outpatient followup. MMODL / IJN: [id number] /
--- NOTE | 2020-10-25 16:45 | P.PN ---
Subjective Progress Note Date: 10/25/20 25-year-old female came in for right cat bite wound of the left hand. Patient was seen in ER for the same yesterday patient was sent home on Augmentin without any improve and patient had this cat bite yesterday morning multiple bites. Patient has worsening swelling and redness because of which patient was admitted with consult orthopedic surgery. Patient doesn't have any leukocytosis no fever. There multiple puncture wounds from cat bite. 10/24/2020 Patient is seen this morning with no acute overnight issues noted. Patient continues on IV antibiotics in the form of Unasyn and will continue. Patient was seen and evaluated by orthopedics and scheduled to undergo incision and drainage with debridement of the left hand. Will continue current pain medications and adjust as needed. Infectious disease consulted and appreciate antibiotic recommendations. Will repeat a.m. labs as well. 10/25/2020 Patient is seen in follow-up status post incision and drainage of the left upper hand but no acute overnight events noted. She is able to move her fingers more freely and able to make a fist still has some tenderness and mild redness noted underneath the dressing denies any further drainage. Patient is continued on IV Unasyn and orthopedics along with infectious disease following. Cultures were not done and so will continue to observe with another 24 hours of IV antibiotics and closely monitor for any fever increasing white blood count or worsening clinical status. Abstain within normal limits patient's white blood count is 4.6 hemoglobin is stable at 12.7. Patient is afebrile. CRP was noted to be elevated at 1.7. Review of systems: Constitutional: No reports of fatigue, fever, or chills, reports left hand swelling and redness with some discomfort although feels improved since incision and drainage Cardiovascular: No reports of chest pain or palpitations Respiratory: No reports of shortness of breath or cough GI: No reports of nausea, vomiting, or diarrhea : No reports of dysuria or retention Neurovascular: No reports of weakness or numbness All medications have been reviewed PHYSICAL EXAMINATION: GENERAL: The patient is alert and oriented x3, not in any acute distress. Well developed, well nourished. HEENT: Pupils are round and equally reacting to light. EOMI. No scleral icterus. No conjunctival pallor. Normocephalic, atraumatic. No pharyngeal erythema. No thyromegaly. CARDIOVASCULAR: S1 and S2 present. No murmurs, rubs, or gallops. PULMONARY: Chest is clear to auscultation, no wheezing or crackles. ABDOMEN: Soft, nontender, nondistended, normoactive bowel sounds. No palpable organomegaly. MUSCULOSKELETAL: No joint swelling or deformity. EXTREMITIES: No cyanosis, clubbing, or pedal edema. swelling of the left hand dorsum that extends up to the forearm there multiple puncture wounds from cat bite has significantly improved and no further swelling noted of the forearm NEUROLOGICAL: Gross neurological examination did not reveal any focal deficits. SKIN: No rashes. Assessment and plan: -cellulitis of the left hand extending up to the left forearm with significant swelling and redness secondary to cat bites and abrasions from her cat. -Status post incision and drainage with debridement with orthopedics of the left hand -Very mild nonspecific elevation of liver enzymes no further workup is necessary at this time. -GI prophylaxis -DVT prophylaxis: Early ambulation Plan: Patient is continued on IV Unasyn and orthopedics along with infectious disease following. Will continue to monitor closely for any signs of worsening infect ion or fever and will closely observe on IV antibiotics with the possibility of requiring IV antibiotic therapy outpatient as clinical symptoms worsen. Labs within normal limits today. Given the extent of the cellulitis and need for surgical intervention patient was requiring more than tonight hospitalization stay. Will discuss with infectious disease about possible IV antibiotic therapy or transitioning to oral antibiotics upon discharge. Objective - Vital Signs Vital signs: Vital Signs Temp 98.2 F 10/25/20 04:45 Pulse 71 10/25/20 04:45 Resp 18 10/25/20 04:45 BP 102/69 10/25/20 04:45 Pulse Ox 99 10/25/20 04:45 Intake & Output 10/24/20 10/25/20 10/25/20 18:59 06:59 18:59 Intake Total 1100 Output Total 2 Balance 1098 Weight 56.699 kg Intake: IV 900 Intake, IV Titration 200 Amount Ampicillin-Sulbactam 3 gm 200 In Sodium Chloride 0.9% 100 ml @ 200 mls/hr IVPB Q6H [facility] Rx#:[id number] Output: Estimated Blood Loss 2 Other: Voiding Method Toilet # Voids 1 - Labs CBC & Chem 7: 10/25/20 09:47 10/25/20 09:47 Labs: Abnormal Lab Results - Last 24 Hours (Table) 10/24/20 Range/Units 16:28 C-Reactive Protein 1.7 H (<1.0) mg/dL
[2020-10-25] MEDS: ACETAMINOPHEN TAB 325 MG TAB PO PRN (19:10)
[2020-10-25 19:54] VITALS: RESP 16
[2020-10-26] MEDS: AMPICILLIN-SULBACTAM 3 GM in SODIUM CHLORIDE 0.9% 100 ML IVPB SCH ×2 (01:03→08:14)
[2020-10-26 04:49] VITALS: BP 110/77; PULSE 60; TEMP 98.2
[2020-10-26] MEDS: FAMOTIDINE 20 MG TAB PO SCH (08:13)
--- NOTE | 2020-10-26 15:20 | P.DS ---
Providers Date of admission: 10/25/20 14:15 Expected date of discharge: 10/26/20 Attending physician: Andrea Forde Consults: 10/23/20 13:47 Consult Physician Urgent Consulting Provider: Stewart Day Consult Reason/Comments: Left hand cellulitis from cat bite Do you want consulting provider notified?: Yes 10/24/20 12:31 Consult Physician Urgent Consulting Provider: Mirella Caal Consult Reason/Comments: left hand cellulitis/cat bites and abrasions Do you want consulting provider notified?: Yes Primary care physician: Suzanne Ramos Hospital Course: Final diagnosis -cellulitis of the left hand extending up to the left forearm with significant swelling and redness secondary to cat bites and abrasions from her cat. -Status post incision and drainage with debridement with orthopedics of the left hand -Very mild nonspecific elevation of liver enzymes no further workup is necessary at this time. -GI prophylaxis -DVT prophylaxis -Full code Discharge disposition Patient is being discharged in a stable condition with guarded prognosis to home. Patient will follow-up with Dr. Suzanne Ramos in the outpatient setting upon discharge. Patient is to also follow-up with Dr Day orthopedics for follow-up along with Dr. Caal at the wound care center as scheduled. Patient will continue on oral Augmentin twice daily for the next 14 days. Total time taken is greater than 35 minutes. Hospital course 25-year-old female came in for right cat bite wound of the left hand. Patient was seen in ER for the same yesterday patient was sent home on Augmentin without any improve and patient had this cat bite yesterday morning multiple bites. Patient has worsening swelling and redness because of which patient was admitted with consult orthopedic surgery. Patient doesn't have any leukocytosis no fever. There multiple puncture wounds from cat bite. 10/24/2020 Patient is seen this morning with no acute overnight issues noted. Patient continues on IV antibiotics in the form of Unasyn and will continue. Patient was seen and evaluated by orthopedics and scheduled to undergo incision and drainage with debridement of the left hand. Will continue current pain medications and adjust as needed. Infectious disease consulted and appreciate antibiotic recommendations. Will repeat a.m. labs as well. 10/25/2020 Patient is seen in follow-up status post incision and drainage of the left upper hand but no acute overnight events noted. She is able to move her fingers more freely and able to make a fist still has some tenderness and mild redness noted underneath the dressing denies any further drainage. Patient is continued on IV Unasyn and orthopedics along with infectious disease following. Cultures were not done and so will continue to observe with another 24 hours of IV antibiotics and closely monitor for any fever increasing white blood count or worsening clinical status. Abstain within normal limits patient's white blood count is 4.6 hemoglobin is stable at 12.7. Patient is afebrile. CRP was noted to be elevated at 1.7. 10/26/2020 Patient is seen in follow-up this morning with no acute overnight issues. Patient states the swelling continues to improve with minimal pain and denies any further drainage from the left hand. Patient being followed by infectious disease along with orthopedics who performed incision and drainage along with debridement of the left hand cellulitis and patient will continue on oral Augmentin twice daily for the next 2 weeks to complete the course. Patient instructed to follow-up with orthopedics along with the [facility] Doctor Tne in the outpatient setting. Currently no reports of chest pain, shortness of breath, or palpitations. Patient is afebrile. No reports of nausea or vomiting and patient is tolerating diet. Patient will be discharged home today. GENERAL: The patient is alert and oriented x3, not in any acute distress. Well developed, well nourished. HEENT: Pupils are round and equally reacting to light. EOMI. No scleral icterus. No conjunctival pallor. Normocephalic, atraumatic. No pharyngeal erythema. No thyromegaly. CARDIOVASCULAR: S1 and S2 present. No murmurs, rubs, or gallops. PULMONARY: Chest is clear to auscultation, no wheezing or crackles. ABDOMEN: Soft, nontender, nondistended, normoactive bowel sounds. No palpable organomegaly. MUSCULOSKELETAL: No joint swelling or deformity. EXTREMITIES: No cyanosis, clubbing, or pedal edema. NEUROLOGICAL: Gross neurological examination did not reveal any focal deficits. SKIN: No rashes. Left dorsum hand cellulitis significantly improving and redness along with swelling improving as well, dressing is dry and intact On exam vital signs are stable. Cardio S1, S2 are muffled. Respiratory system shows diminished breath sounds at the bases with no wheezing or rhonchi noted. Abdomen is soft and nontender. Nervous system shows no focal deficits. Please refer to medication reconciliation sheet for a list of medications. Patient Condition at Discharge: Stable Plan - Discharge Summary New Discharge Prescriptions: Continue Acetaminophen Tab [Tylenol] 1,000 mg PO Q6HR PRN PRN Reason: Pain Or Fever > 100.5 Amoxicillin/Potassium Clav [Augmentin 875-125 Tablet] 1 tab PO BID 14 Days #28 tab Ibuprofen [Motrin Ib] 400 - 800 mg PO Q8H PRN PRN Reason: Pain Or Fever > 100.5 Discharge Medication List Acetaminophen Tab [Tylenol] 1,000 mg PO Q6HR PRN 10/23/20 [History] Ibuprofen [Motrin Ib] 400 - 800 mg PO Q8H PRN 10/23/20 [History] Amoxicillin/Potassium Clav [Augmentin 875-125 Tablet] 1 tab PO BID 14 Days #28 tab 10/26/20 [Rx] Follow up Appointment(s)/Referral(s): Suzanne Ramos MD [Primary Care Provider] - 1-2 days (office is closed on thursday's.patient will have to schedule own appt.) Mirella Caal MD [STAFF PHYSICIAN] - 11/05/20 3:00 pm (patient needs to bring insurance card with her in order to be seen.) Stewart Day MD [STAFF PHYSICIAN] - 11/02/20 2:10 pm Activity/Diet/Wound Care/Special Instructions: Activity Limited until follow-up Follow-up with primary care provider upon discharge Follow-up with orthopedics outpatient in one week Follow-up with infectious disease wound care center Continue taking medications twice daily for 2 weeks until finished continue with local wound care as instructed Keep left upper extremity elevated while at rest Monitor for fevers Watch for any worsening signs of infection or drainage at the area Discharge Disposition: HOME SELF-CARE
== END 2020-10-26 12:20 | disposition home or self-care (01) | DRG 580 ==
LOC: EC 12:29 → 1SOBS 14:08 → 5NMEDONC 15:41 → OBSVTOIN 10-25 14:15
PROVIDERS: ADMIT Internal Medicine; ATTEND Internal Medicine
PROC: 0J9K0ZZ Drainage of Left Hand Subcutaneous Tissue and Fascia, Open Approach (ICD-10-PCS; principal; 2020-10-24 07:30)
DX: L03.114 Cellulitis of left upper limb (principal); L02.512 Cutaneous abscess of left hand; W55.01XA Bitten by cat, initial encounter; S61.452A Open bite of left hand, initial encounter; F17.200 Nicotine dependence, unspecified, uncomplicated
CPT/HCPCS: 36415; 80048; 80053; 81025; 85025; 85652; 86140; 87040

== ENCOUNTER 2021-07-13 09:30 | Emergency (ER) | payer MEDICAID, OTHER ==
[2021-07-13 09:40] VITALS: BP 124/87; PULSE 92; RESP 16; TEMP 98.9
[2021-07-13] MEDS ORDERED: SODIUM CHLORIDE 0.9% 1,000 ML IV STA (10:15)
[2021-07-13] MEDS ORDERED: LORazepam 2 MG/ML INJ IV STA (10:15)
--- NOTE | 2021-07-13 10:20 | ED ---
General Adult HPI - General Chief complaint: Anxiety Stated complaint: Panic attack, chest pains Time Seen by Provider: 07/13/21 10:10 Source: patient, family (mom), RN notes reviewed, old records reviewed Mode of arrival: ambulatory Limitations: no limitations - History of Present Illness Initial comments: This is a well-appearing pleasant 26-year-old female that presents tearful complaining of anxiety. She states that she continues to have panic attacks worsening over the past 3 months. She states that for the past 3-4 days she's been having these episodes of anxiety with difficulty breathing, chest pain and nausea and vomiting every couple minutes. She does not know what is causing her anxiety. She states sometimes she will just start crying while looking at her dog or watching TV. She denies any drug use. 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 Ramos but does not have a telephone supervisor. Patient denies any alcohol or drug use. She states that she does smoke cigarettes but just a couple a day. -: month(s) (3) Severity scale (1-10): 0 Consistency: intermittent, now resolved Associated Symptoms: chest pain, nausea/vomiting, shortness of breath Treatments Prior to Arrival: none - Related Data Home Medications Medication Instructions Recorded Confirmed Acetaminophen Tab [Tylenol] 1,000 mg PO Q6HR PRN 10/23/20 10/23/20 Ibuprofen [Motrin Ib] 400 - 800 mg PO Q8H PRN 10/23/20 10/23/20 Previous Rx's Medication Instructions Recorded Amoxicillin/Potassium Clav 1 tab PO BID 14 Days #28 tab 10/26/20 [Augmentin 875-125 Tablet] Allergies Allergy/AdvReac Type Severity Reaction Status Date / Time No Known Allergies Allergy Verified 07/13/21 09:39 Review of Systems ROS Statement: Those systems with pertinent positive or pertinent negative responses have been documented in the HPI. ROS Other: All systems not noted in ROS Statement are negative. Past Medical History Past Medical History: No Reported History History of Any Multi-Drug Resistant Organisms: None Reported Past Surgical History: Adenoidectomy, Tonsillectomy Additional Past Surgical History / Comment(s): NOSE SURGERY DUE TO IT BEING BROKEN. Past Anesthesia/Blood Transfusion Reactions: No Reported Reaction Past Psychological History: No Psychological Hx Reported Smoking Status: Current every day smoker Past Alcohol Use History: Daily Past Drug Use History: Prescription Drug Abuse General Exam Limitations: no limitations General appearance: alert, in no apparent distress Head exam: Present: atraumatic Eye exam: Absent: scleral icterus ENT exam: Present: mucous membranes moist Neck exam: Present: full ROM. Absent: tenderness, meningismus, lymphadenopathy Respiratory exam: Present: normal lung sounds bilaterally. Absent: respiratory distress, accessory muscle use Cardiovascular Exam: Present: regular rate GI/Abdominal exam: Present: soft, normal bowel sounds. Absent: distended, tenderness Extremities exam: Present: normal inspection, normal capillary refill. Absent: pedal edema Back exam: Present: normal inspection, full ROM. Absent: tenderness, CVA tenderness (R), CVA tenderness (L), rash noted Neurological exam: Present: alert, oriented X3 Psychiatric exam: Present: anxious, other (Tearful) Skin exam: Present: warm, dry, normal color. Absent: cyanosis, diaphoretic, petechiae, pallor Course Vital Signs 07/13/21 09:37 Temperature 98.9 F Pulse Rate 92 Respiratory 16 Rate Blood Pressure 124/87 O2 Sat by Pulse 99 Oximetry EKG Findings - EKG Results: EKG: sinus rhythm (Ventricular rate 72, DE interval 0.137, QRS 0.99, QTC 0.413) Medical Decision Making - Medical Decision Making Chest x-ray shows no acute cardiopulmonary process. Lungs are clear. EKG showed sinus rhythm with no ectopy and no ST elevation. Troponin is negative at 0.012 Labs are unremarkable. Urinalysis is clear infection negative for . Patient is resting comfortably on the cart after given Ativan. I instructed her to follow-up with her primary care doctor on Thursday. Return to emergency room if any new or concerning symptoms. Her significant other is at bedside states that they're agreeable to this plan of care. Case discussed with Dr. Bailey - Lab Data Result diagrams: 07/13/21 10:23 07/13/21 10:23 Lab Results 07/13/21 07/13/21 07/13/21 Range/Units 10:23 10:23 10:23 WBC 3.5 L (3.8-10.6) k/uL RBC 4.55 (3.80-5.40) m/uL Hgb 14.2 (11.4-16.0) gm/dL Hct 44.8 (34.0-46.0) % MCV 98.5 (80.0-100.0) fL MCH 31.3 (25.0-35.0) pg MCHC 31.7 (31.0-37.0) g/dL RDW 11.7 (11.5-15.5) % Plt Count 224 (150-450) k/uL MPV 7.7 Neutrophils % 45 % Lymphocytes % 39 % Monocytes % 7 % Eosinophils % 2 % Basophils % 3 % Neutrophils # 1.6 (1.3-7.7) k/uL Lymphocytes # 1.4 (1.0-4.8) k/uL Monocytes # 0.2 (0-1.0) k/uL Eosinophils # 0.1 (0-0.7) k/uL Basophils # 0.1 (0-0.2) k/uL Sodium 145 (137-145) mmol/L Potassium 4.0 (3.5-5.1) mmol/L Chloride 106 (98-107) mmol/L Carbon Dioxide 27 (22-30) mmol/L Anion Gap 12 mmol/L BUN 8 (7-17) mg/dL Creatinine 0.57 (0.52-1.04) mg/dL Est GFR (CKD-EPI)AfAm >90 (>60 ml/min/1.73 sqM) Est GFR (CKD-EPI)NonAf >90 (>60 ml/min/1.73 sqM) Glucose 86 (74-99) mg/dL Calcium 9.2 (8.4-10.2) mg/dL Total Bilirubin 0.6 (0.2-1.3) mg/dL AST 221 H (14-36) U/L ALT 122 H (4-34) U/L Alkaline Phosphatase 114 (38-126) U/L Troponin I <0.012 (0.000-0.034) ng/mL Total Protein 8.3 H (6.3-8.2) g/dL Albumin 5.1 H (3.5-5.0) g/dL Urine Color Urine Appearance (Clear) Urine pH (5.0-8.0) Ur Specific [place] (1.001-1.035) Urine Protein (Negative) Urine Glucose (UA) (Negative) Urine Ketones (Negative) Urine Blood (Negative) Urine Nitrite (Negative) Urine Bilirubin (Negative) Urine Urobilinogen (<2.0) mg/dL Ur Leukocyte Esterase (Negative) Urine HCG, Qual (Not Detectd) 07/13/21 07/13/21 Range/Units 10:23 10:23 WBC (3.8-10.6) k/uL RBC (3.80-5.40) m/uL Hgb (11.4-16.0) gm/dL Hct (34.0-46.0) % MCV (80.0-100.0) fL MCH (25.0-35.0) pg MCHC (31.0-37.0) g/dL RDW (11.5-15.5) % Plt Count (150-450) k/uL MPV Neutrophils % % Lymphocytes % % Monocytes % % Eosinophils % % Basophils % % Neutrophils # (1.3-7.7) k/uL Lymphocytes # (1.0-4.8) k/uL Monocytes # (0-1.0) k/uL Eosinophils # (0-0.7) k/uL Basophils # (0-0.2) k/uL Sodium (137-145) mmol/L Potassium (3.5-5.1) mmol/L Chloride (98-107) mmol/L Carbon Dioxide (22-30) mmol/L Anion Gap mmol/L BUN (7-17) mg/dL Creatinine (0.52-1.04) mg/dL Est GFR (CKD-EPI)AfAm (>60 ml/min/1.73 sqM) Est GFR (CKD-EPI)NonAf (>60 ml/min/1.73 sqM) Glucose (74-99) mg/dL Calcium (8.4-10.2) mg/dL Total Bilirubin (0.2-1.3) mg/dL AST (14-36) U/L ALT (4-34) U/L Alkaline Phosphatase (38-126) U/L Troponin I (0.000-0.034) ng/mL Total Protein (6.3-8.2) g/dL Albumin (3.5-5.0) g/dL Urine Color Light Yellow Urine Appearance Clear (Clear) Urine pH 6.0 (5.0-8.0) Ur Specific [place] 1.006 (1.001-1.035) Urine Protein Negative (Negative) Urine Glucose (UA) Negative (Negative) Urine Ketones Negative (Negative) Urine Blood Negative (Negative) Urine Nitrite Negative (Negative) Urine Bilirubin Negative (Negative) Urine Urobilinogen <2.0 (<2.0) mg/dL Ur Leukocyte Esterase Negative (Negative) Urine HCG, Qual Not Detected (Not Detectd) Disposition Clinical Impression: Acute anxiety Disposition: HOME SELF-CARE Condition: Good Instructions (If sedation given, give patient instructions): Generalized Anxiety Disorder (ED) Additional Instructions: Follow-up with the primary care doctor next week. Return to the emergency room with any new or concerning symptoms. For bouts of nausea you can take o [id number] Benadryl as needed. Is patient prescribed a controlled substance at d/c from ED?: No Referrals: Suzanne Ramos MD [Primary Care Provider] - 1-2 days Time of Disposition: 13:28
[2021-07-13 11:09] LABS: Basophils # (A) 0.1 k/uL (0-0.2); Basophils % (A) 3 %; Eosinophils # (A) 0.1 k/uL (0-0.7); Eosinophils % (A) 2 %; HCT 44.8 % (34.0-46.0); HGB 14.2 gm/dL (11.4-16.0); Lymphocytes # (A) 1.4 k/uL (1.0-4.8); Lymphocytes % (A) 39 %; MCH 31.3 pg (25.0-35.0); MCHC 31.7 g/dL (31.0-37.0); MCV 98.5 fL (80.0-100.0); Mean Platelet Volume 7.7; Monocytes # (A) 0.2 k/uL (0-1.0); Monocytes % (A) 7 %; Neutrophils # (A) 1.6 k/uL (1.3-7.7); Neutrophils % (A) 45 %; Platelet Count 224 k/uL (150-450); RBC 4.55 m/uL (3.80-5.40); RDW 11.7 % (11.5-15.5); WBC 3.5 k/uL (3.8-10.6)
--- NOTE | 2021-07-13 11:14 | XR ---
EXAMINATION TYPE: XR chest 2V DATE OF EXAM: 07/13/2021 COMPARISON: 04/08/2018 INDICATION: Difficulty breathing TECHNIQUE: Frontal and lateral views of the chest are obtained. FINDINGS: The heart size is normal. The pulmonary vasculature is normal. The lungs are clear. IMPRESSION: 1. No acute pulmonary process.
[2021-07-13 11:19] LABS: ALT 122 U/L (4-34); AST 221 U/L (14-36); African American GFR (CKD) >90 (>60 ml/min/1.73 sqM); Albumin 5.1 g/dL (3.5-5.0); Alkaline Phosphatase 114 U/L (38-126); Anion Gap 12 mmol/L; Blood Urea Nitrogen 8 mg/dL (7-17); Calcium 9.2 mg/dL (8.4-10.2); Carbon Dioxide 27 mmol/L (22-30); Chloride 106 mmol/L (98-107); Glucose 86 mg/dL (74-99); Non-African American GFR(CKD) >90 (>60 ml/min/1.73 sqM); Sodium 145 mmol/L (137-145); Total Bilirubin 0.6 mg/dL (0.2-1.3); Total Protein 8.3 g/dL (6.3-8.2)
[2021-07-13 12:19] LABS: Appearance,Urine Clear (Clear); Bilirubin,Urine Negative (Negative); Blood,Urine Negative (Negative); Color,Urine Light Yellow; Glucose,Urine (UA) Negative (Negative); Ketones,Urine Negative (Negative); Leukocyte Esterase,Urine Negative (Negative); Nitrite,Urine Negative (Negative); Protein,Urine Negative (Negative); Specific Gravity,Urine 1.006 (1.001-1.035); Urobilinogen,Urine <2.0 mg/dL (<2.0)
== END 2021-07-13 13:52 | disposition home or self-care (01) ==
LOC: EC 09:30
DX: F41.9 Anxiety disorder, unspecified (principal); F17.210 Nicotine dependence, cigarettes, uncomplicated
CPT/HCPCS: 36415; 93005; 80053; 84484; 85025; 81003; 81025; 71046; 99285; 96374; 96361; J2060

== ENCOUNTER → 2021-09-19 | Outpatient (CLI) | payer MEDICAID ==
[2021-09-19 16:14] LABS: HCT 40.6 % (37.2-46.3); HGB 13.1 g/dL (12.0-15.0); MCH 30.9 pg (27.0-32.0); MCHC 32.3 g/dL (32.0-37.0); MCV 95.8 fL (80.0-97.0); Mean Platelet Volume 11.7 fL (9.5-12.2); NRBC Per 100 WBC 0 /100 WBCS (0.0-0.0); Platelet Count 314 X 10*3/uL (140-440); RBC 4.24 X 10*6/uL (4.10-5.20); RDW 11.3 % (11.5-14.5); WBC 6.86 X 10*3/uL (4.50-10.00)
[2021-09-19 16:57] LABS: Hepatitis B Surface Antigen Nonreactive (Nonreactive)
[2021-09-19 17:46] LABS: African American GFR (CKD) 156.2 (60.0-200.0); Non-African American GFR(CKD) 134.8 (60.0-200.0)
[2021-09-19 20:21] LABS: HIV 2 AB Non-Reactive (Non-Reactive); HIV AB P24 Non-Reactive (Non-Reactive); HIV P24 AG Non-Reactive (Non-Reactive)
[2021-09-20 05:45] LABS: Toxoplasma Antibody (IgG) <3.0 IU/mL (<7.2); Toxoplasma Antibody (IgM) <3.0 AU/mL (<8.0)
== END | disposition home or self-care (01) ==
LOC: LABWHC1 09:35
PROVIDERS: ATTEND Obstetrics & Gynecology
DX: Z34.81 Encounter for supervision of other normal pregnancy, first trimester (principal); Z3A.00 Weeks of gestation of pregnancy not specified
CPT/HCPCS: 36415; 82565; 82947; 85027; 86762; 86777; 86778; 86780; 86850; 86900; 86901; 87340; 87390

== ENCOUNTER → 2021-10-08 | Outpatient (CLI) | payer MEDICAID ==
--- NOTE | 2021-10-08 11:44 | US ---
EXAMINATION TYPE: Transabdominal DATE OF EXAM: 10/08/2021 11:33 AM COMPARISON: NONE for this . CLINICAL HISTORY: Z36.89 CONFIRM GESTATIONAL AGE AND VIABILITY. Viability. A1 - hx 1 miscarriag e. EXAM PERFORMED: Transvaginal (TV) and Transabdominal (TA). To better visualize left ovary and confir m yolk sac. EXAM MEASUREMENTS: GESTATIONAL AGE / DATING Physician Established: (9 weeks/0 days) EDC: 05/13/2022 Dates by LMP: Unknown Dates by First Scan: This is first scan at this facility. Dates by Current Scan for: (9 weeks/1 day) EDC: 05/12/2022 MATERNAL ANATOMY Uterus: 9.3 x 8.2 x 6.6 cm. Anteverted. Right Ovary: 2.8 x 2.5 x 1.4 cm. Left Ovary: 4.2 x 2.4 x 2.0 cm. Area of mixed echogenicity seen: 2.2 x 1.8 x 1.4 cm. Post CDS / Adnexa: Fluid seen in CDS Presence of free fluid: Yes in CDS Presence of corpus luteal cyst: Possible within left ovary: Area of mixed echogenicity seen: 2.2 x 1. 8 x 1.4 cm. Presence of subchorionic bleed: Hypoechoic area seen adjacent to the gestational sac: 0.9 x 0.4 x 1.0 cm. GESTATION / SURVEY CRL: 2.41 cm (9 weeks/1 day) Yolk Sac (normal less than 6mm): 2.4 mm. Heart Rate: 178 bpm Rhythm: Normal IUP: Viable IUP Date of LMP: Unknown per patient. IMPRESSION: Viable 9 weeks 1 day with a heart rate 178 bpm. Suspicion for a 1 cm subchorionic hemorrhag e. Correlate clinically.
== END | disposition home or self-care (01) ==
LOC: RADUSWWP 10:47
PROVIDERS: ATTEND Obstetrics & Gynecology
DX: Z36.89 Encounter for other specified antenatal screening (principal); Z3A.09 9 weeks gestation of pregnancy
CPT/HCPCS: 76801; 76817

== ENCOUNTER 2022-07-05 17:10 | Observation (INO) | payer OTHER ==
[2022-07-05 18:33] LABS: Appearance,Urine Clear (Clear); Bacteria,Urine Occasional /hpf; Bilirubin,Urine Negative (Negative); Blood,Urine Negative (Negative); Color,Urine Light Yellow; Glucose,Urine (UA) Negative (Negative); Ketones,Urine Negative (Negative); Leukocyte Esterase,Urine Small (Negative); Mucus,Urine Rare /hpf; Nitrite,Urine Negative (Negative); PH, Urine 6.5 (5.0-8.0); Protein,Urine Trace (Negative); RBC,Urine 1 /hpf (0-5); Specific Gravity,Urine 1.006 (1.001-1.035); Squamous Epithelial Cell,Urine 4 /hpf (0-4); Urobilinogen,Urine <2.0 mg/dL (<2.0); WBC,Urine 1 /hpf (0-5)
[2022-07-05 18:34] LABS: Anisocytosis Slight; HCT 41.4 % (34.0-46.0); Hypochromasia Moderate; MCH 24.3 pg (25.0-35.0); MCV 80.9 fL (80.0-100.0); Mean Platelet Volume 6.9; Microcytosis Slight; Platelet Count 282 k/uL (150-450); RBC 5.11 m/uL (3.80-5.40); RDW 18.2 % (11.5-15.5)
[2022-07-05 18:37] LABS: Amphetamine Screen,Urine Not Detected (NotDetected); Barbiturate Screen,Urine Not Detected (NotDetected); Benzodiazepines Screen,Urine Not Detected (NotDetected); Cocaine Screen,Urine Not Detected (NotDetected); Methadone Screen, Urine Not Detected (NotDetected); Opiate Screen,Urine Not Detected (NotDetected); Oxycodone Screen, Urine Not Detected (NotDetected); Phencyclidine Screen,Urine Not Detected (NotDetected); Tricyclic Antidepressant,Urine Not Detected (NotDetected); Urn Cannabinoid Scrn Not Detected (NotDetected)
[2022-07-05 18:40] LABS: HGB 12.4 gm/dL (11.4-16.0)
[2022-07-05 18:47] LABS: ALT 85 U/L (4-34); AST 123 U/L (14-36); African American GFR (CKD) >90 (>60 ml/min/1.73 sqM); Albumin 4.9 g/dL (3.5-5.0); Alkaline Phosphatase 269 U/L (38-126); Anion Gap 14 mmol/L; Blood Urea Nitrogen 10 mg/dL (7-17); Carbon Dioxide 28 mmol/L (22-30); Chloride 101 mmol/L (98-107); Glucose 88 mg/dL (74-99); Non-African American GFR(CKD) >90 (>60 ml/min/1.73 sqM); Potassium 4.2 mmol/L (3.5-5.1); Sodium 143 mmol/L (137-145); Total Bilirubin 0.4 mg/dL (0.2-1.3); Total Protein 8.2 g/dL (6.3-8.2)
--- NOTE | 2022-07-05 19:08 | ED ---
Psych HPI - General Chief Complaint: Psychiatric Symptoms Stated Complaint: don't feel well Time Seen by Provider: 07/05/22 17:19 Source: patient Mode of arrival: ambulatory - History of Present Illness Initial Comments: Patient is a 27-year-old female currently 45 days presenting with chief complaint of suicidal ideation. Patient states that she has been "stru ggling mentally" since the of her child. Patient does have support from family and her partner. She denies any plan to harm herself. No homicidal ideation. Patient had several shots of alcohol prior to arrival, she does not remember how many. She is tearful while obtaining the history. She admits to some discomfort over her section scar, however this is consistent with her baseline in recent weeks. She is currently formula feeding. She is having no other physical complaints. - Related Data Home Medications Medication Instructions Recorded Confirmed Acetaminophen Tab [Tylenol] 1,000 mg PO Q6HR PRN 10/23/20 07/05/22 Omeprazole 40 mg PO DAILY 05/18/22 07/05/22 Vit No.179/Iron/Folic 1 tab PO DAILY 05/18/22 07/05/22 [ Tablet] Ibuprofen [Motrin] 600 mg PO Q6H PRN 07/05/22 07/05/22 Allergies Allergy/AdvReac Type Severity Reaction Status Date / Time No Known Allergies Allergy Verified 07/05/22 18:36 Review of Systems ROS Statement: Those systems with pertinent positive or pertinent negative responses have been documented in the HPI. ROS Other: All systems not noted in ROS Statement are negative. Past Medical History Past Medical History: No Reported History History of Any Multi-Drug Resistant Organisms: None Reported Past Surgical History: Adenoidectomy, Tonsillectomy Additional Past Surgical History / Comment(s): NOSE SURGERY DUE TO IT BEING BROKEN. Past Anesthesia/Blood Transfusion Reactions: No Reported Reaction Past Psychological History: Anxiety Smoking Status: Former smoker Past Alcohol Use History: None Reported Past Drug Use History: None Reported - Past Family History Mother Additional Family Medical History / Comment(s): Skin cancer General Exam Limitations: no limitations General appearance: alert, in no apparent distress Head exam: Present: atraumatic, normocephalic, normal inspection Eye exam: Present: normal appearance, EOMI. Absent: periorbital swelling Neck exam: Present: normal inspection, full ROM Respiratory exam: Present: normal lung sounds bilaterally. Absent: respiratory distress, wheezes, rales, rhonchi, stridor Cardiovascular Exam: Present: normal rhythm, tachycardia, normal heart sounds. Absent: systolic murmur, diastolic murmur, rubs, gallop, clicks Neurological exam: Present: alert, oriented X3, CN II-XII intact Psychiatric exam: Present: normal affect, normal mood, suicidal ideation. Absent: homicidal ideation Skin exam: Present: warm, dry, intact, normal color. Absent: rash Course Vital Signs 07/05/22 07/05/22 17:12 18:05 Temperature 98.2 F Pulse Rate 120 H 107 H Respiratory 20 20 Rate Blood Pressure 151/100 128/89 O2 Sat by Pulse 98 95 Oximetry Medical Decision Making - Medical Decision Making Was pt. sent in by a medical professional or institution (, CECILIO, DOUPER, urgent care, hospital, or fdc...) When possible be specific @ -No Did you speak to anyone other than the patient for history (EMS, parent, family, police, friend...)? What history was obtained from this source @ -No Did you review nursing and triage notes (agree or disagree)? Why? @ -I reviewed and agree with nursing and triage notes Were old charts reviewed (outside hosp., previous admission, EMS record, old EKG, old radiological studies, urgent care reports/EKG's, fdc records)? Report findings @ -No old charts were reviewed Differential Diagnosis (chest pain, altered mental status, abdominal pain women, abdominal pain men, vaginal bleeding, weakness, fever, dyspnea, syncope, headache, dizziness, GI bleed, back pain, seizure, CVA, palpatations, mental health, musculoskeletal)? @ -Differential Mental Health Depression, anxiety, bipolar, psychosis, schizophrenia, borderline personality, situational depression, adjustment disorder, behavioral disorder, brain tumor, malingering, substance abuse, encephalopathy, medication reaction, dementia, hypothyroidism, degenerative neurologic disorder, lupus.... This is not meant to be all-inclusive list EKG interpreted by me (3pts min.). @ -As above X-rays interpreted by me (1pt min.). @ -None done CT interpreted by me (1pt min.). @ -None done U/S interpreted by me (1pt. min.). @ -None done What testing was considered but not performed or refused? (CT, X-rays, U/S, labs)? Why? @ -None What meds were considered but not given or refused? Why? @ -None Did you discuss the management of the patient with other professionals (professionals i.e. , PA, DOUPER, lab, RT, psych nurse, home health care social worker, scientific artist, teacher, chief client officer, family preservation caseworker)? Give summary @ -Spoke with on-call provider from [facility] hospitalist group who accepted admission Was smoking cessation discussed for >3mins.? @ -No Was critical care preformed (if so, how long)? @ -No Were there social determinants of health that impacted care today? How? (Homelessness, low income, unemployed, alcoholism, drug addiction, transportation, low edu. Level, literacy, decrease access to med. care, group home, rehab)? @ -No Was there de-escalation of care discussed even if they declined (Discuss DNR or withdrawal of care, Hospice)? DNR status @ -No What co-morbidities impacted this encounter? (DM, HTN, Smoking, COPD, CAD, Cancer, CVA, ARF, Chemo, Hep., AIDS, mental health diagnosis, sleep apnea, morbid obesity)? @ -None Was patient admitted / discharged? Hospital course, mention meds given and route, prescriptions, significant lab abnormalities, going to OR and other pertinent info. @ -Patient is a 27-year-old female presenting with chief complaint of suicidal ideation. Patient is 45 days . No other physical complaints at this time. The patient did have several shots of alcohol prior to arrival. Physical examination is unremarkable. Serum alcohol level is 356. Patient will be admitted for observation with suicide precautions and consult to psychiatry. Patient is agreeable with this plan. I discussed this case my attending Dr. Shekhar freire Undiagnosed new problem with uncertain prognosis? @ -No Drug Therapy requiring intensive monitoring for toxicity (Heparin, Nitro, Insuli n, Cardizem)? @ -No Were any procedures done? @ -No Diagnosis/symptom? @ -Alcohol intoxication Acute, or Chronic, or Acute on Chronic? @ -Acute Uncomplicated (without systemic symptoms) or Complicated (systemic symptoms)? @ -Uncomplicated Side effects of treatment? @ -No Exacerbation, Progression, or Severe Exacerbation? @ -No Poses a threat to life or bodily function? How? (Chest pain, [place], [place], pneumonia, PE, COPD, DKA, ARF, appy, cholecystitis, CVA, Diverticulitis, Homicidal, Suicidal, threat to staff... and all critical care pts) @ -No Diagnosis/symptom? @Suicidal ideation Acute, or Chronic, or Acute on Chronic? @Acute Uncomplicated (without systemic symptoms) or Complicated (systemic symptoms)? @Complicated Side effects of treatment? @ none Exacerbation, Progression, or Severe Exacerbation] @ no Poses a threat to life or bodily function? @Yes - Lab Data Result diagrams: 07/05/22 18:27 07/05/22 18:27 Lab Results 07/05/22 07/05/22 07/05/22 Range/Units 18:07 18:07 18:27 WBC 3.0 L (3.8-10.6) k/uL RBC 5.11 (3.80-5.40) m/uL Hgb 12.4 D (11.4-16.0) gm/dL Hct 41.4 (34.0-46.0) % MCV 80.9 (80.0-100.0) fL MCH 24.3 L (25.0-35.0) pg MCHC 30.0 L (31.0-37.0) g/dL RDW 18.2 H (11.5-15.5) % Plt Count 282 (150-450) k/uL MPV 6.9 Neutrophils % (Manual) 30 % Lymphocytes % (Manual) 61 % Monocytes % (Manual) 9 % Neutrophils # (Manual) 0.90 L (1.3-7.7) k/uL Lymphocytes # (Manual) 1.83 (1.0-4.8) k/uL Monocytes # (Manual) 0.27 (0-1.0) k/uL Nucleated RBCs 0 (0-0) /100 WBC Manual Slide Review Performed Hypochromasia Moderate Anisocytosis Slight Microcytosis Slight Sodium (137-145) mmol/L Potassium (3.5-5.1) mmol/L Chloride (98-107) mmol/L Carbon Dioxide (22-30) mmol/L Anion Gap mmol/L BUN (7-17) mg/dL Creatinine (0.52-1.04) mg/dL Est GFR (CKD-EPI)AfAm (>60 ml/min/1.73 sqM) Est GFR (CKD-EPI)NonAf (>60 ml/min/1.73 sqM) Glucose (74-99) mg/dL Calcium (8.4-10.2) mg/dL Magnesium (1.6-2.3) mg/dL Total Bilirubin (0.2-1.3) mg/dL AST (14-36) U/L ALT (4-34) U/L Alkaline Phosphatase (38-126) U/L Total Protein (6.3-8.2) g/dL Albumin (3.5-5.0) g/dL Urine Color Light Yellow Urine Appearance Clear (Clear) Urine pH 6.5 (5.0-8.0) Ur Specific [place] 1.006 (1.001-1.035) Urine Protein Trace H (Negative) Urine Glucose (UA) Negative (Negative) Urine Ketones Negative (Negative) Urine Blood Negative (Negative) Urine Nitrite Negative (Negative) Urine Bilirubin Negative (Negative) Urine Urobilinogen <2.0 (<2.0) mg/dL Ur Leukocyte Esterase Small H (Negative) Urine RBC 1 (0-5) /hpf Urine WBC 1 (0-5) /hpf Ur Squamous Epith Cells 4 (0-4) /hpf Urine Bacteria Occasional H (None) /hpf Urine Mucus Rare H (None) /hpf Urine Opiates Screen Not Detected (NotDetected) Ur Oxycodone Screen Not Detected (NotDetected) Urine Methadone Screen Not Detected (NotDetected) Ur Propoxyphene Screen Not Detected (NotDetected) Ur Barbiturates Screen Not Detected (NotDetected) U Tricyclic Antidepress Not Detected (NotDetected) Ur Phencyclidine Scrn Not Detected (NotDetected) Ur Amphetamines Screen Not Detected (NotDetected) U Methamphetamines Scrn Not Detected (NotDetected) U Benzodiazepines Scrn Not Detected (NotDetected) Urine Cocaine Screen Not Detected (NotDetected) U Marijuana (THC) Screen Not Detected (NotDetected) Serum Alcohol mg/dL 07/05/22 Range/Units 18:27 WBC (3.8-10.6) k/uL RBC (3.80-5.40) m/uL Hgb (11.4-16.0) gm/dL Hct (34.0-46.0) % MCV (80.0-100.0) fL MCH (25.0-35.0) pg MCHC (31.0-37.0) g/dL RDW (11.5-15.5) % Plt Count (150-450) k/uL MPV Neutrophils % (Manual) % Lymphocytes % (Manual) % Monocytes % (Manual) % Neutrophils # (Manual) (1.3-7.7) k/uL Lymphocytes # (Manual) (1.0-4.8) k/uL Monocytes # (Manual) (0-1.0) k/uL Nucleated RBCs (0-0) /100 WBC Manual Slide Review Hypochromasia Anisocytosis Microcytosis Sodium 143 (137-145) mmol/L Potassium 4.2 (3.5-5.1) mmol/L Chloride 101 (98-107) mmol/L Carbon Dioxide 28 (22-30) mmol/L Anion Gap 14 mmol/L BUN 10 (7-17) mg/dL Creatinine 0.64 (0.52-1.04) mg/dL Est GFR (CKD-EPI)AfAm >90 (>60 ml/min/1.73 sqM) Est GFR (CKD-EPI)NonAf >90 (>60 ml/min/1.73 sqM) Glucose 88 (74-99) mg/dL Calcium 9.0 (8.4-10.2) mg/dL Magnesium 2.0 (1.6-2.3) mg/dL Total Bilirubin 0.4 (0.2-1.3) mg/dL AST 123 H (14-36) U/L ALT 85 H (4-34) U/L Alkaline Phosphatase 269 H (38-126) U/L Total Protein 8.2 (6.3-8.2) g/dL Albumin 4.9 (3.5-5.0) g/dL Urine Color Urine Appearance (Clear) Urine pH (5.0-8.0) Ur Specific [place] (1.001-1.035) Urine Protein (Negative) Urine Glucose (UA) (Negative) Urine Ketones (Negative) Urine Blood (Negative) Urine Nitrite (Negative) Urine Bilirubin (Negative) Urine Urobilinogen (<2.0) mg/dL Ur Leukocyte Esterase (Negative) Urine RBC (0-5) /hpf Urine WBC (0-5) /hpf Ur Squamous Epith Cells (0-4) /hpf Urine Bacteria (None) /hpf Urine Mucus (None) /hpf Urine Opiates Screen (NotDetected) Ur Oxycodone Screen (NotDetected) Urine Methadone Screen (NotDetected) Ur Propoxyphene Screen (NotDetected) Ur Barbiturates Screen (NotDetected) U Tricyclic Antidepress (NotDetected) Ur Phencyclidine Scrn (NotDetected) Ur Amphetamines Screen (NotDetected) U Methamphetamines Scrn (NotDetected) U Benzodiazepines Scrn (NotDetected) Urine Cocaine Screen (NotDetected) U Marijuana (THC) Screen (NotDetected) Serum Alcohol 356 H* mg/dL Disposition Clinical Impression: Suicidal ideation, Alcohol intoxication Disposition: ADMITTED IP TO THIS [facility] Condition: Fair Time of Disposition: 19:25
[2022-07-05 19:12] LABS: Alcohol 356 mg/dL
[2022-07-05] MEDS ORDERED: NALOXONE 0.4 MG/ML 1 ML VIAL IV PRN (19:22)
[2022-07-05] MEDS ORDERED: IBUPROFEN 400 MG TAB PO PRN (19:22)
[2022-07-05] MEDS ORDERED: SODIUM CHLORIDE 0.9% 1,000 ML IV ONE (19:24)
[2022-07-05] MEDS ORDERED: SODIUM CHLORIDE 0.9% 1,000 ML IV SCH (19:30)
[2022-07-05 19:33] LABS: Lymphocytes # (M) 1.83 k/uL (1.0-4.8); Monocytes # (M) 0.27 k/uL (0-1.0); Neutrophils % (M) 30 %; Nucleated Red Blood Cells 0 /100 WBC (0-0); Total Cells Counted 100
[2022-07-06] MEDS ORDERED: LORazepam 0.5 MG TAB PO PRN (00:27)
[2022-07-06] MEDS ORDERED: THIAMINE 100 MG/ML 2 ML VIAL IM STA (00:27)
[2022-07-06] MEDS ORDERED: LORazepam 1 MG TAB PO PRN ×3 (00:27)
[2022-07-06] MEDS: ONDANSETRON 4 MG/2 ML VIAL IVP PRN ×3 (00:31→13:21)
[2022-07-06] MEDS: SODIUM CHLORIDE 0.9% 1,000 ML IV SCH ×2 (00:33→07:40)
[2022-07-06] MEDS ORDERED: PANTOPRAZOLE 40 MG TABLET PO SCH (07:30)
[2022-07-06 08:10] VITALS: RESP 18
[2022-07-06] MEDS ORDERED: MULTIVITAMINS, THERA 1 EACH TAB PO SCH (09:00)
[2022-07-06] MEDS ORDERED: PRENATAL VIT-IRON-FOLIC ACID 1 EACH TABLET PO SCH (09:00)
[2022-07-06] MEDS ORDERED: FOLIC ACID 1 MG TAB PO SCH (09:00)
[2022-07-06 10:32] LABS: African American GFR (CKD) 154.8 (60.0-200.0); Albumin 4.4 g/dL (3.8-4.9); Anion Gap 17.9 mmol/L (10.00-18.00); Calcium 8.7 mg/dL (8.7-10.3); Carbon Dioxide 22.1 mmol/L (20.0-27.5); Globulin 2.2 g/dL (1.6-3.3); Magnesium 1.7 mg/dL (1.5-2.4); Non-African American GFR(CKD) 133.6 (60.0-200.0); Potassium 4.3 mmol/L (3.5-5.5); Total Bilirubin 0.5 mg/dL (0.30-1.20); Total Protein 6.6 g/dL (6.2-8.2)
[2022-07-06 14:08] LABS: Urine Alcohol Positive (Negative); Urine Barbiturate Negative (Negative); Urine Cocaine Negative (Negative); Urine Methadone Negative (Negative); Urine Opiates Negative (Negative); Urine Phencyclidine Negative (Negative)
[2022-07-06 15:21] VITALS: BP 123/81; PULSE 61; TEMP 98.3
--- NOTE | 2022-07-06 15:34 | P.CN ---
Psychiatric Consult - . Consult date: 07/06/22 Consult:: 07/06/22 15:19 IDENTIFYING DATA: This patient is a 27-year-old female who is engaged and 1.5 months REASON FOR REFERRAL: Psychiatry was consulted for alcohol use and for evaluation of potential suicidal ideation HISTORY OF PRESENT ILLNESS: The patient presented to the hospital for alcohol withdrawal. Patient states that she began drinking when she was about 15 years old but that she did not used to drink much. She reports having had a good and delivery. She denied experiencing depression or anxiety prior to or during the . However, she states that taking care of her has been difficult and overwhelming at times. She denies feeling depressed or hopeless but says that she worries about whether she is doing an adequate job as a parent. She says that over the past one month she has been drinking about 2 shots daily. She says she felt dehydrated and unwell and requested her friend to bring her into the hospital. Patient reports rare history of panic attacks and says that she also experienced a panic attack yesterday prior to arrival to the hospital. Patient denies currently feeling depressed or having a history of depression. She states that she would like to do her best to take care of her and feels embarrassed at the current situation. However, she believes that she would like treatment for anxiety as she has felt overwhelmed recently. Patient endorses feelings of restlessness, feeling keyed up, and having trouble relaxing. She states that she has good appetite. She reports fair sleep although she has been tired from caring for her . She reports having a close and supportive relationship with her fianc. Patient is on CIWA protocol and denies current symptoms of alcohol withdrawal including tremors, anxiety, diaphoresis, or palpitations. She has not been given any Ativan today. VSS At this time patient denies any suicidal or homicidal ideations, intent or plan. She is future oriented and would like to return to caring for her child. She also expresses excitement at returning back to working in the beginning of July at [employer]. Patient denies any auditory, visual hallucinations and denies any paranoia or delusions. PAST PSYCHIATRIC HISTORY: Patient denies being on any psychiatric medications. Patient denies any previous psychiatric hospitalizations. Patient denies any psychiatric outpatient follow-up. Patient denies any history of suicide attempts in the past. PAST MEDICAL HISTORY: Patient reports being on omeprazole for reflux ALLERGIES: as per EMR. CHEMICAL DEPENDENCY HISTORY: as per HPI. Denies other use of substances including cannabis or tobacco. Urine drug screen was positive for alcohol with level at 356 FAMILY PSYCHIATRIC/SUBSTANCE USE HISTORY: She says that her mother has a history of alcohol use disorder SOCIAL HISTORY: Patient reports currently residing with her fianc. She states that they have been together for the past 12 years. She reports a stable and supportive relationship. She also has her one and [id number] child. MENTAL STATUS EXAM: General Appearance: Patient appears to be stated age is alert, pleasant, and cooperative. Patient appears to have fair hygiene and grooming wearing hospital gown with fair eye contact. Behavior: Patient is calmly lying in bed without any agitated behavior. Speech: Patient's speech is fluent and nonpressured. Mood/Affect: Patient reports their mood is "good", affect is congruent Suicidality/Homicidality: Patient denies having any suicidal or homicidal ideation intent or plan. Perceptions: Patient denies any visual hallucinations and denies any auditory hallucinations Though content/process: There is no evidence of any delusional thought content and thought process is linear and goal-directed. Memory and concentration: AOX3, grossly intact for the purposes of this session. Can spell "WORLD" backwards Judgment and insight: Fair in seeking treatment IMPRESSIONS: Alcohol use disorder, moderate Adjustment disorder with anxiety PLAN: -At this time patient DOES NOT meet criteria for inpatient psychiatric admission. -Would recommend the following medication changes/additions (discussed benefits, risks, side effects of these with patient) Zoloft 25 mg daily for 1 week then increase to 50 mg daily. Naltrexone 50 mg daily for alcohol cravings. Scripts for these may be sent upon discharge, per discretion of primary team -CIWA protocol with PRN Ativan for alcohol withdrawal. Continue to monitor vital signs. -Can discontinue 1:1 sitter at this time as patient is not currently an imminent threat to themselves -Boring Machine Operator Helper spoke with patient about substance abuse and the harmful effects on medical and mental health, patient verbally understood and agreed. -stage set up worker to provide patient substance use treatment resources including AA/NA meetings in the community. Discussed seeking outpatient mental health treatment. -Communicated plan to patient's nurse and patient's fiance, who also expressed comfort with the plan -Psychiatry will sign off at this time -Please contact with any questions.
[2022-07-06] MEDS ORDERED: NALTREXONE HCL 50 MG TAB PO SCH (15:45)
[2022-07-06] MEDS ORDERED: SERTRALINE 25 MG TAB PO SCH (15:45)
[2022-07-07] MEDS ORDERED: THIAMINE 100 MG TAB PO SCH (09:00)
--- NOTE | 2022-07-16 00:06 | P.DS ---
Providers Date of admission: 07/05/22 19:19 Expected date of discharge: 07/06/22 Attending physician: Nemesio Boles Consults: 07/05/22 19:21 Consult Physician Routine Consulting Provider: Jesus Andres Consult Reason/Comments: ETOH, Suicidal Do you want consulting provider notified?: Yes Primary care physician: Suzanne Ramos Hospital Course: Discharge diagnosis Acute alcohol intoxication on admission 45 days Alcohol use disorder Anxiety/adjustment disorder DVT prophylax with SCDs Hospital course Patient is a 27-year-old female with a known history of anxiety and prior history of smoking and current alcohol use over the past 1 month. She has been drinking 2 shots daily. Patient is concerned about taking care of her baby and patient is 45 days . She states that panicked when she came to ER. She has been struggling mentally since the of her child. Patient felt suicidal but did not have any plan. No homicidal ideation. Patient does have support from her family and her partner. Patient had several shots of alcohol prior to arrival. Does not remember how many. Otherwise denies any complaints of chest pain or shortness of breath. No nausea vomiting abdominal pain or diarrhea. No cough or sputum production. No fever no chills. Laboratory data showed WBC 3.0 hemoglobin 12.4 and platelets 282 Sodium 143 potassium 4.2 chloride 101 bicarb is 28 BUN 10 and creatinine 0.64 and blood sugar is 88 AST 123 ALT 85 and alk phos 269 TSH level is 0.873. Urinalysis is negative for infection UDS negative Serum alcohol level is 356 Patient was continued on IV hydration. Continue with thiamine and multivitamins and monitor for alcohol withdrawal symptoms. Patient was social on admission and psychiatry was consulted for evaluation. Patient will be continued on one-to-one sitter. Alcohol cessation has been counseled extensively. Discussed with the patient and her partner at bedside in detail. Patient was seen by psychiatry and recommends to start on sertraline 25 mg daily for 7 days followed by 50 mg daily after 1 week. Naltrexone for alcohol cravings. Patient will be continued on thiamine multivitamins. Patient otherwise did improve symptomatically. Sitter has been discontinued and is cleared from psychiatry standpoint. Patient is being discharged home today. Follow-up with primary care physician next 3 to 5 days. Discharge physical examination was done and vitals reviewed. Patient Condition at Discharge: Fair Plan - Discharge Summary Discharge Rx Participant: Yes New Discharge Prescriptions: New Thiamine [Vitamin B-1] 100 mg PO DAILY #14 tab Sertraline [Zoloft] 50 mg PO DAILY 30 Days #30 tab Sertraline [Zoloft] 25 mg PO DAILY 7 Days #7 tab Continue Acetaminophen Tab [Tylenol] 1,000 mg PO Q6HR PRN PRN Reason: Pain Or Fever > 100.5 Ibuprofen [Motrin] 600 mg PO Q6H PRN PRN Reason: Pain Omeprazole 40 mg PO DAILY Discontinued Vit No.179/Iron/Folic [ Tablet] 1 tab PO DAILY Discharge Medication List Acetaminophen Tab [Tylenol] 1,000 mg PO Q6HR PRN 10/23/20 [History] Omeprazole 40 mg PO DAILY 05/18/22 [History] Ibuprofen [Motrin] 600 mg PO Q6H PRN 07/05/22 [History] Sertraline [Zoloft] 25 mg PO DAILY 7 Days #7 tab 07/06/22 [Rx] Sertraline [Zoloft] 50 mg PO DAILY 30 Days #30 tab 07/06/22 [Rx] Thiamine [Vitamin B-1] 100 mg PO DAILY #14 tab 07/06/22 [Rx] Follow up Appointment(s)/Referral(s): Suzanne Ramos MD [Primary Care Provider] - 1-2 days ([facility] Patient Instructions/Handouts: Thiamine (By mouth), Sertraline (By mouth), Abuse of Alcohol (DC) Discharge/Stand Alone Forms: Who Do I Call?, Community Resources, Outpatient Counseling Discharge Disposition: HOME SELF-CARE
--- NOTE | 2022-07-16 00:08 | P.HPIM ---
History of Present Illness H&P Date: 07/06/22 Chief Complaint: Alcohol intoxication Patient is a 27-year-old female with a known history of anxiety and prior history of smoking and current alcohol use over the past 1 month. She has been drinking 2 shots daily. Patient is concerned about taking care of her baby and patient is 45 days . She states that panicked when she came to ER. She has been struggling mentally since the of her child. Patient felt suicidal but did not have any plan. No homicidal ideation. Patient does have support from her family and her partner. Patient had several shots of alcohol prior to arrival. Does not remember how many. Otherwise denies any complaints of chest pain or shortness of breath. No nausea vomiting abdominal pain or diarrhea. No cough or sputum production. No fever no chills. Laboratory data showed WBC 3.0 hemoglobin 12.4 and platelets 282 Sodium 143 potassium 4.2 chloride 101 bicarb is 28 BUN 10 and creatinine 0.64 and blood sugar is 88 AST 123 ALT 85 and alk phos 269 TSH level is 0.873. Urinalysis is negative for infection UDS negative Serum alcohol level is 356 Review of Systems Constitutional: Patient denies any fever or chills . no Generalized weakness. Abdomen: Patient denied any nausea or vomiting or abd. pain Cardiovascular: Patient denies any chest pain or short of breath no palpitations. Respiratory: patient denied any cough . no sputum production. No shortness of breath Neurologic: Patient denied any numbness or tingling headache. Musculoskeletal: Patient denies any complaints of joint swelling or deformity. Skin: Negative Psychiatric: Negative Endocrine: No heat or cold intolerance. No recent weight gain. Genitourinary: No dysuria or hematuria. All other 14 point ROS negative except the above Past Medical History Past Medical History: No Reported History History of Any Multi-Drug Resistant Organisms: None Reported Past Surgical History: Adenoidectomy, Tonsillectomy Additional Past Surgical History / Comment(s): NOSE SURGERY DUE TO IT BEING BROKEN. Past Anesthesia/Blood Transfusion Reactions: No Reported Reaction Past Psychological History: Anxiety Smoking Status: Former smoker Past Alcohol Use History: None Reported Past Drug Use History: None Reported - Past Family History Mother Additional Family Medical History / Comment(s): Skin cancer Medications and Allergies Home Medications Medication Instructions Recorded Confirmed Type Acetaminophen Tab [Tylenol] 1,000 mg PO Q6HR PRN 10/23/20 07/05/22 History Omeprazole 40 mg PO DAILY 05/18/22 07/05/22 History Ibuprofen [Motrin] 600 mg PO Q6H PRN 07/05/22 07/05/22 History Sertraline [Zoloft] 25 mg PO DAILY 7 Days #7 tab 07/06/22 Rx Sertraline [Zoloft] 50 mg PO DAILY 30 Days #30 tab 07/06/22 Rx Thiamine [Vitamin B-1] 100 mg PO DAILY #14 tab 07/06/22 Rx Allergies Allergy/AdvReac Type Severity Reaction Status Date / Time No Known Allergies Allergy Verified 07/05/22 18:36 Physical Exam Vitals: Vital Signs Temp Pulse Pulse Resp BP BP Pulse Ox 07/06/22 08:00 98.1 F 69 18 126/62 97 07/06/22 02:00 98.2 F 81 16 116/68 97 07/05/22 21:21 98.8 F 87 18 131/82 95 07/05/22 20:00 18 07/05/22 18:05 107 H 20 128/89 95 07/05/22 17:12 98.2 F 120 H 20 151/100 98 Intake and Output 07/05/22 07/06/22 07/06/22 22:59 06:59 14:59 Intake Total 900 Balance 900 Intake: Intake, IV Titration 900 Amount Sodium Chloride 0.9% 1, 900 000 ml @ 75 mls/hr IV . [id number] [facility] Rx#:[id number] Other: Weight 54.431 kg PHYSICAL EXAMINATION: Patient is lying in the bed comfortably, no acute distress, awake alert and oriented.. HEENT: Normocephalic. Neck is supple. Pupils reactive. Nostrils clear. Oral cavity is moist. Neck reveals no JVD, carotid bruits, or thyromegaly. CHEST EXAMINATION: Trachea is central. Symmetrical expansion. Lung davalos clear to auscultation and percussion. CARDIAC: Normal S1, S2 with no gallops. No murmurs ABDOMEN: Soft. Bowel sounds present. Nontender. No organomegaly. No abdominal bruits. Extremities: reveal no edema. No clubbing or cyanosis Neurologically awake, alert, oriented x3 with well-coordinated movements. No focal deficits noted Skin: No rash or skin lesions. Psychiatric: Coperative. Nonsuicidal, Musculoskeletal: No joint swelling or deformity. Normal range of motion. Results CBC & Chem 7: 07/05/22 18:27 07/06/22 04:26 Labs: Abnormal Lab Results - Last 24 Hours (Table) 07/05/22 07/05/22 07/05/22 Range/Units 18:07 18:27 18:27 WBC 3.0 L (3.8-10.6) k/uL MCH 24.3 L (25.0-35.0) pg MCHC 30.0 L (31.0-37.0) g/dL RDW 18.2 H (11.5-15.5) % Neutrophils # (Manual) 0.90 L (1.3-7.7) k/uL Creatinine (0.6-1.5) mg/dL Glucose (70-110) mg/dL AST 123 H (14-36) U/L ALT 85 H (4-34) U/L Alkaline Phosphatase 269 H (38-126) U/L Urine Protein Trace H (Negative) Ur Leukocyte Esterase Small H (Negative) Urine Bacteria Occasional H (None) /hpf Urine Mucus Rare H (None) /hpf Serum Alcohol 356 H* mg/dL 07/06/22 Range/Units 04:26 WBC (3.8-10.6) k/uL MCH (25.0-35.0) pg MCHC (31.0-37.0) g/dL RDW (11.5-15.5) % Neutrophils # (Manual) (1.3-7.7) k/uL Creatinine 0.5 L (0.6-1.5) mg/dL Glucose 69 L (70-110) mg/dL AST 99 H (14-36) U/L ALT 70 H (4-34) U/L Alkaline Phosphatase 245 H (38-126) U/L Urine Protein (Negative) Ur Leukocyte Esterase (Negative) Urine Bacteria (None) /hpf Urine Mucus (None) /hpf Serum Alcohol mg/dL Thrombosis Risk Factor Assmnt - DVT/VTE Prophylaxis DVT/VTE Prophylaxis: Mechanical Prophylaxis ordered - Choose All That Apply Each Factor Represents 1 point: or Other Risk Factors: No Thrombosis Risk Factor Assessment Total Risk Factor Score: 1 Thrombosis Risk Factor Assessment Level: Low Risk Assessment and Plan Assessment: Acute alcohol intoxication on admission 45 days Alcohol use disorder Anxiety/adjustment disorder DVT prophylax with SCDs Plan: Patient will be continued on IV hydration. Continue with thiamine and multivitamins and monitor for alcohol withdrawal symptoms. Patient was social on admission and psychiatry was consulted for evaluation. Patient will be continued on one-to-one sitter. Alcohol cessation has been counseled extensively. Discussed with the patient and her partner at bedside in detail. Continue to follow closely. Time with Patient: Greater than 30
== END 2022-07-06 18:25 | disposition home or self-care (01) ==
LOC: EC 17:10 → 5NMEDONC 19:19
PROVIDERS: ADMIT Hospitalist; ATTEND Hospitalist
DX: O90.6 Postpartum mood disturbance (principal); F43.22 Adjustment disorder with anxiety; F10.129 Alcohol abuse with intoxication, unspecified; R45.851 Suicidal ideations; F41.9 Anxiety disorder, unspecified; Y90.8 Blood alcohol level of 240 mg/100 ml or more; F41.0 Panic disorder [episodic paroxysmal anxiety]; Z79.899 Other long term (current) drug therapy; Z87.891 Personal history of nicotine dependence; Z98.890 Other specified postprocedural states; Z81.1 Family history of alcohol abuse and dependence; Z80.8 Family history of malignant neoplasm of other organs or systems
CPT/HCPCS: 96376; 96361 ×3; 96372; 96374; 82075; 99284; 36415; 80053 ×2; 84443; 83735 ×2; 85025; 81001; 80306 ×2; G0378 ×2; G0480; J3411; J2405; S0197; 80320

== ENCOUNTER 2022-07-24 08:59 | Observation (INO) | payer OTHER ==
[2022-07-24] MEDS ORDERED: SODIUM CHLORIDE 0.9% 1,000 ML IV STA ×2 (09:26→10:42)
[2022-07-24] MEDS ORDERED: ONDANSETRON 4 MG/2 ML VIAL IVP STA (09:26)
[2022-07-24] MEDS ORDERED: PANTOPRAZOLE 40 MG/10 ML VIAL IVP STA (09:26)
--- NOTE | 2022-07-24 09:33 | ED ---
Nausea/Vomiting/Diarrhea HPI - General Source: patient, RN notes reviewed Mode of arrival: ambulatory Limitations: no limitations - History of Present Illness MD complaint: nausea, vomiting <Mary Keane - Last Filed: 07/27/22 17:31> <AlfredoKacey Ashli - Last Filed: 07/28/22 11:05> - General Chief complaint: Nausea/Vomiting/Diarrhea Stated complaint: vomiting blood Time Seen by Provider: 07/24/22 09:12 - History of Present Illness Initial comments: This is a 27-year-old female who presents to the emergency department for nausea and vomiting. This has been constant since around 1am. Denies any changes in bowel/bladder habits or associated abdominal pain. Describes the vomiting as starting out a bright red color and progressing to coffee-ground emesis. Denies any history of similar symptoms in the past. Also denies any problems with GERD or gastric ulcers. She did take Zoloft, which was newly prescribed, on an empty stomach last night and wonders if this may have been the culprit. She also had several White Claws last night. Reports a long-standing history of alcohol abuse as well. Denies any fevers, chills, sore throat, cough, dyspnea, chest pain, palpitations, diarrhea, back pain, or headaches. (Mary Keane) - Related Data Home Medications Medication Instructions Recorded Confirmed Gravol 50 - 100 mg PO Q4H PRN MDD 8 tabs 07/24/22 07/24/22 Ibuprofen [Motrin Ib] 600 mg PO Q8H PRN 07/24/22 07/24/22 Previous Rx's Medication Instructions Recorded Sertraline [Zoloft] 50 mg PO DAILY 30 Days #30 tab 07/06/22 Ondansetron [Zofran] 4 mg PO Q8HR PRN 4 Days #10 tab 07/25/22 Pantoprazole Sodium [Protonix] 40 mg PO BID #60 tab 07/25/22 Thiamine [Vitamin B-1] 100 mg PO DAILY tab 07/25/22 Allergies Allergy/AdvReac Type Severity Reaction Status Date / Time No Known Allergies Allergy Verified 07/24/22 12:42 Review of Systems ROS Other: All systems not noted in ROS Statement are negative. <Mary Keane - Last Filed: 07/27/22 17:31> ROS Other: All systems not noted in ROS Statement are negative. <Kacey Fuentes Ashli - Last Filed: 07/28/22 11:05> ROS Statement: Those systems with pertinent positive or pertinent negative responses have been documented in the HPI. Past Medical History Past Medical History: No Reported History History of Any Multi-Drug Resistant Organisms: None Reported Past Surgical History: Adenoidectomy, Tonsillectomy Additional Past Surgical History / Comment(s): NOSE SURGERY DUE TO IT BEING BROKEN. Past Anesthesia/Blood Transfusion Reactions: No Reported Reaction Past Psychological History: Anxiety Smoking Status: Former smoker Past Alcohol Use History: None Reported Past Drug Use History: None Reported - Past Family History Mother Additional Family Medical History / Comment(s): Skin cancer <Mary Keane - Last Filed: 07/27/22 17:31> General Exam Limitations: no limitations General appearance: alert, in no apparent distress Head exam: Present: atraumatic, normocephalic, normal inspection Respiratory exam: Present: normal lung sounds bilaterally. Absent: respiratory distress, wheezes, rales, rhonchi, stridor Cardiovascular Exam: Present: regular rate, normal rhythm, normal heart sounds. Absent: systolic murmur, diastolic murmur, rubs, gallop, clicks GI/Abdominal exam: Present: soft, tenderness (Epigastric), normal bowel sounds. Absent: distended Neurological exam: Present: alert, oriented X3, CN II-XII intact Psychiatric exam: Present: normal affect, normal mood Skin exam: Present: warm, dry, intact, normal color. Absent: rash <Mary Keane - Last Filed: 07/27/22 17:31> Course Vital Signs 07/24/22 07/24/22 07/24/22 09:05 09:54 14:07 Temperature 98 F 97.8 F Pulse Rate 130 H 104 H 100 Respiratory 18 19 18 Rate Blood Pressure 120/87 125/94 116/78 O2 Sat by Pulse 100 98 100 Oximetry Medical Decision Making - Lab Data Result diagrams: 07/25/22 04:08 07/25/22 04:08 - Radiology Data Radiology results: report reviewed, image reviewed <Mary Keane - Last Filed: 07/27/22 17:31> - Lab Data Result diagrams: 07/25/22 04:08 07/25/22 04:08 <Kacey Fuentes A - Last Filed: 07/28/22 11:05> - Medical Decision Making This is a 27-year-old female who presents to the emergency department for nausea and vomiting. Was pt. sent in by a medical professional or institution? @ -No Did you speak to anyone other than the patient for history? @ -No Did you review nursing and triage notes? @ -Yes, and I agree, it is accurate with regards to the patient's symptoms. Were old charts reviewed? @ -No Differential Diagnosis? @ -Differential Nausea and Vomiting: Gastroenteritis, cholecystitis, appendicitis, pancreatitis, migraine, benign positional vertigo, food borne illness, pyelonephritis, irritable bowel syndrome, influenza, Covid, GERD, incarcerated hernia, intestinal obstruction, this is not meant to be an all-inclusive list. CT interpreted by me (1pt min.)? @ -Computed tomography scan of the abdomen and pelvis obtained. My interpretation identifies colonic wall thickening to the right and transverse colon and no evidence of free air. What testing was considered but not performed? (CT, X-rays, U/S, labs)? Why? @ -No What meds were considered but not given? Why? @ -None Did you discuss the management of the patient with other professionals? @ -Yes, Dr. Lutz, who accepts the patient for admission. Did you reconcile home meds? @ -No Was smoking cessation discussed for >3mins.? @ -No Was critical care preformed (if so, how long)? @ -No Were there social determinants of health that impacted care today? How? (Homelessness, low income, unemployed, alcoholism, drug addiction, transportation, low edu. Level, literacy, decrease access to med. care, [facility], rehab)? @ -No Was there de-escalation of care discussed even if they declined? (Discuss DNR or withdrawal of care, Hospice)? @ -No What co-morbidities impacted this encounter? (DM, HTN, Smoking, COPD, CAD, Cancer, CVA, Hep., AIDS, mental health diagnosis, sleep apnea, morbid obesity)? @ -None Was patient admitted / discharged? @ -Admitted. Lab work obtained revealing leukocytosis and severe acidosis with a CO2 of 7, lactic acid of 6.2, and anion gap of 38. Elevated liver enzymes are consistent with prior values. Patient is actively vomiting in the examination room. Appearance of this is consistent with a coffee-ground emesis. Patient treated with IV fluids, Zofran, and Protonix. She continued to vomit after the Zofran, and was subsequently given a dose of Reglan. Computed tomography scan of the abdomen and pelvis obtained, findings consistent with inflammatory versus ischemic colitis. She also has hepatomegaly with fatty infiltrative hepatocellular disease. She was given a 2 L bolus of IV fluids, and lactic acid improved significantly to 1.8. She was started on IV Zosyn with blood cultures obtained prior. Patient has continued to remain tachycardic. The cause of the acidosis is not entirely clear at this time. Alcoholic ketoacidosis is a possibility. Patient admitted to medicine for the coffee-ground emesis with acidotic state. GI listed as consult. Undiagnosed new problem with uncertain prognosis? @ -None Drug Therapy requiring intensive monitoring for toxicity (Heparin, Nitro, Insulin, Cardizem)? @ -None Were any procedures done? @ -None Diagnosis/symptom? @ -Coffee-ground emesis, lactic acidosis, colitis Acute, or Chronic, or Acute on Chronic? @ -Acute Uncomplicated (without systemic symptoms) or Complicated (systemic symptoms)? @ -Complicated Side effects of treatment? @ -None Exacerbation, Progression, or Severe Exacerbation] @ -Not applicable Poses a threat to life or bodily function? @ -Yes This case was discussed in detail with the attending ED physician, Dr. Fuentes. Presentation, findings, and treatment plan discussed in detail as well. (Mary Keane) - Lab Data Lab Results 07/24/22 07/24/22 07/24/22 Range/Units 09:52 09:52 09:52 WBC 13.9 H (3.8-10.6) k/uL RBC 5.56 H (3.80-5.40) m/uL Hgb 13.6 (11.4-16.0) gm/dL Hct 48.2 H (34.0-46.0) % MCV 86.6 D (80.0-100.0) fL MCH 24.4 L (25.0-35.0) pg MCHC 28.2 L (31.0-37.0) g/dL RDW 17.4 H (11.5-15.5) % Plt Count 386 (150-450) k/uL MPV 8.5 Neutrophils % 90 % Lymphocytes % 5 % Monocytes % 4 % Eosinophils % 0 % Basophils % 1 % Neutrophils # 12.5 H (1.3-7.7) k/uL Lymphocytes # 0.6 L (1.0-4.8) k/uL Monocytes # 0.6 (0-1.0) k/uL Eosinophils # 0.0 (0-0.7) k/uL Basophils # 0.1 (0-0.2) k/uL Hypochromasia Marked Anisocytosis Slight ESR (0-20) mm/hr Sodium 142 (137-145) mmol/L Potassium 5.3 H (3.5-5.1) mmol/L Chloride 97 L (98-107) mmol/L Carbon Dioxide 7 L* (22-30) mmol/L Anion Gap 38 mmol/L BUN 10 (7-17) mg/dL Creatinine 1.00 (0.52-1.04) mg/dL Est GFR (CKD-EPI)AfAm >90 (>60 ml/min/1.73 sqM) Est GFR (CKD-EPI)NonAf 79 (>60 ml/min/1.73 sqM) Glucose 93 (74-99) mg/dL Lactic Ac Sepsis Rflx Plasma Lactic Acid Rui 6.2 H* (0.7-2.0) mmol/L Calcium 9.8 (8.4-10.2) mg/dL Total Bilirubin 0.9 (0.2-1.3) mg/dL AST 183 H (14-36) U/L ALT 102 H (4-34) U/L Alkaline Phosphatase 295 H (38-126) U/L C-Reactive Protein (<1.0) mg/dL Total Protein 10.1 H (6.3-8.2) g/dL Albumin 6.0 H (3.5-5.0) g/dL Amylase 60 (30-110) U/L Lipase 91 (23-300) U/L Urine Color Urine Appearance (Clear) Urine pH (5.0-8.0) Ur Specific Laie (1.001-1.035) Urine Protein (Negative) Urine Glucose (UA) (Negative) Urine Ketones (Negative) Urine Blood (Negative) Urine Nitrite (Negative) Urine Bilirubin (Negative) Urine Urobilinogen (<2.0) mg/dL Ur Leukocyte Esterase (Negative) Urine RBC (0-5) /hpf Urine WBC (0-5) /hpf Ur Squamous Epith Cells (0-4) /hpf Hyaline Casts (0-2) /lpf Urine Mucus (None) /hpf Urine HCG, Qual (Not Detectd) 07/24/22 07/24/22 07/24/22 Range/Units 09:52 09:52 10:38 WBC (3.8-10.6) k/uL RBC (3.80-5.40) m/uL Hgb (11.4-16.0) gm/dL Hct (34.0-46.0) % MCV (80.0-100.0) fL MCH (25.0-35.0) pg MCHC (31.0-37.0) g/dL RDW (11.5-15.5) % Plt Count (150-450) k/uL MPV Neutrophils % % Lymphocytes % % Monocytes % % Eosinophils % % Basophils % % Neutrophils # (1.3-7.7) k/uL Lymphocytes # (1.0-4.8) k/uL Monocytes # (0-1.0) k/uL Eosinophils # (0-0.7) k/uL Basophils # (0-0.2) k/uL Hypochromasia Anisocytosis ESR 8 (0-20) mm/hr Sodium (137-145) mmol/L Potassium (3.5-5.1) mmol/L Chloride (98-107) mmol/L Carbon Dioxide (22-30) mmol/L Anion Gap mmol/L BUN (7-17) mg/dL Creatinine (0.52-1.04) mg/dL Est GFR (CKD-EPI)AfAm (>60 ml/min/1.73 sqM) Est GFR (CKD-EPI)NonAf (>60 ml/min/1.73 sqM) Glucose (74-99) mg/dL Lactic Ac Sepsis Rflx Y Plasma Lactic Acid Rui (0.7-2.0) mmol/L Calcium (8.4-10.2) mg/dL Total Bilirubin (0.2-1.3) mg/dL AST (14-36) U/L ALT (4-34) U/L Alkaline Phosphatase (38-126) U/L C-Reactive Protein <0.5 (<1.0) mg/dL Total Protein (6.3-8.2) g/dL Albumin (3.5-5.0) g/dL Amylase (30-110) U/L Lipase (23-300) U/L Urine Color Urine Appearance (Clear) Urine pH (5.0-8.0) Ur Specific Laie (1.001-1.035) Urine Protein (Negative) Urine Glucose (UA) (Negative) Urine Ketones (Negative) Urine Blood (Negative) Urine Nitrite (Negative) Urine Bilirubin (Negative) Urine Urobilinogen (<2.0) mg/dL Ur Leukocyte Esterase (Negative) Urine RBC (0-5) /hpf Urine WBC (0-5) /hpf Ur Squamous Epith Cells (0-4) /hpf Hyaline Casts (0-2) /lpf Urine Mucus (None) /hpf Urine HCG, Qual (Not Detectd) 07/24/22 07/24/22 Range/Units 10:55 10:55 WBC (3.8-10.6) k/uL RBC (3.80-5.40) m/uL Hgb (11.4-16.0) gm/dL Hct (34.0-46.0) % MCV (80.0-100.0) fL MCH (25.0-35.0) pg MCHC (31.0-37.0) g/dL RDW (11.5-15.5) % Plt Count (150-450) k/uL MPV Neutrophils % % Lymphocytes % % Monocytes % % Eosinophils % % Basophils % % Neutrophils # (1.3-7.7) k/uL Lymphocytes # (1.0-4.8) k/uL Monocytes # (0-1.0) k/uL Eosinophils # (0-0.7) k/uL Basophils # (0-0.2) k/uL Hypochromasia Anisocytosis ESR (0-20) mm/hr Sodium (137-145) mmol/L Potassium (3.5-5.1) mmol/L Chloride (98-107) mmol/L Carbon Dioxide (22-30) mmol/L Anion Gap mmol/L BUN (7-17) mg/dL Creatinine (0.52-1.04) mg/dL Est GFR (CKD-EPI)AfAm (>60 ml/min/1.73 sqM) Est GFR (CKD-EPI)NonAf (>60 ml/min/1.73 sqM) Glucose (74-99) mg/dL Lactic Ac Sepsis Rflx Plasma Lactic Acid Rui (0.7-2.0) mmol/L Calcium (8.4-10.2) mg/dL Total Bilirubin (0.2-1.3) mg/dL AST (14-36) U/L ALT (4-34) U/L Alkaline Phosphatase (38-126) U/L C-Reactive Protein (<1.0) mg/dL Total Protein (6.3-8.2) g/dL Albumin (3.5-5.0) g/dL Amylase (30-110) U/L Lipase (23-300) U/L Urine Color Light Yellow Urine Appearance Clear (Clear) Urine pH 6.0 (5.0-8.0) Ur Specific Laie 1.018 (1.001-1.035) Urine Protein 3+ H (Negative) Urine Glucose (UA) Negative (Negative) Urine Ketones 4+ H (Negative) Urine Blood Moderate H (Negative) Urine Nitrite Negative (Negative) Urine Bilirubin Negative (Negative) Urine Urobilinogen <2.0 (<2.0) mg/dL Ur Leukocyte Esterase Negative (Negative) Urine RBC 1 (0-5) /hpf Urine WBC <1 (0-5) /hpf Ur Squamous Epith Cells 2 (0-4) /hpf Hyaline Casts 23 H (0-2) /lpf Urine Mucus Rare H (None) /hpf Urine HCG, Qual Not Detected (Not Detectd) Disposition <Mary Keane - Last Filed: 07/27/22 17:31> <Kacey Fuentes - Last Filed: 07/28/22 11:05> Clinical Impression: Coffee ground emesis, Lactic acidosis, Colitis Disposition: ADMITTED IP TO THIS HOSP Condition: Good
[2022-07-24 10:27] LABS: Anisocytosis Slight; Basophils # (A) 0.1 k/uL (0-0.2); Basophils % (A) 1 %; Eosinophils % (A) 0 %; HCT 48.2 % (34.0-46.0); HGB 13.6 gm/dL (11.4-16.0); Hypochromasia Marked; Lymphocytes # (A) 0.6 k/uL (1.0-4.8); Lymphocytes % (A) 5 %; MCH 24.4 pg (25.0-35.0); MCHC 28.2 g/dL (31.0-37.0); Mean Platelet Volume 8.5; Monocytes # (A) 0.6 k/uL (0-1.0); Monocytes % (A) 4 %; Neutrophils # (A) 12.5 k/uL (1.3-7.7); Neutrophils % (A) 90 %; Platelet Count 386 k/uL (150-450); RBC 5.56 m/uL (3.80-5.40); RDW 17.4 % (11.5-15.5); WBC 13.9 k/uL (3.8-10.6)
[2022-07-24] MEDS ORDERED: METOCLOPRAMIDE 5 MG/ML 2 ML VIAL IVP STA ×2 (10:29→11:39)
[2022-07-24 10:32] LABS: MCV 86.6 fL (80.0-100.0)
[2022-07-24 10:35] LABS: ALT 102 U/L (4-34); AST 183 U/L (14-36); African American GFR (CKD) >90 (>60 ml/min/1.73 sqM); Alkaline Phosphatase 295 U/L (38-126); Amylase 60 U/L (30-110); Anion Gap 38 mmol/L; Blood Urea Nitrogen 10 mg/dL (7-17); Calcium 9.8 mg/dL (8.4-10.2); Chloride 97 mmol/L (98-107); Glucose 93 mg/dL (74-99); Lipase 91 U/L (23-300); Non-African American GFR(CKD) 79 (>60 ml/min/1.73 sqM); Potassium 5.3 mmol/L (3.5-5.1); Sodium 142 mmol/L (137-145); Total Bilirubin 0.9 mg/dL (0.2-1.3); Total Protein 10.1 g/dL (6.3-8.2)
[2022-07-24 10:38] LABS: Carbon Dioxide 7 mmol/L (22-30)
--- NOTE | 2022-07-24 11:29 | CT ---
EXAMINATION TYPE: CT abdomen pelvis w con DATE OF EXAM: 07/24/2022 HISTORY: Coffee ground emesis, abdominal pain CT DLP: 568.4mGycm Automated Exposure Control for Dose Reduction was Utilized. CONTRAST: CT scan of the abdomen and pelvis is performed without oral but with IV Contrast, patient injected wi th 100 mL of Isovue 300. COMPARISON: None. FINDINGS: LUNG BASES: No significant abnormality is appreciated. LIVER/GB: Hepatomegaly with liver markedly hypodense consistent with fatty infiltrative hepatocellula r disease. No biliary dilatation. PANCREAS: No significant abnormality is seen. SPLEEN: No significant abnormality is seen. ADRENALS: No significant abnormality is seen. KIDNEYS: There is a single 2-3 mm right renal calculus coronal image 73. There are 2 left-sided renal calculi: Image 76 measuring up to 4 mm. Symmetric cortical medullary uptake and excretion without hy dronephrosis seen bilaterally BOWEL: Suboptimal evaluation without enteric contrast. Stomach poorly distended and thus suboptimally evaluated. No suspicious small or large bowel dilatation. Terminal ileum appears within normal limit s. There is moderate to severe wall thickening in the right colon with moderate wall thickening exten ding into the transverse colon and [id number] wall thickening extending into the left colon up to the proximal sigmoid colon level in the pelvis were there is abrupt transition into fecal filled s igmoid rectal colon without abnormal wall thickening. No free or mesenteric air. UTERUS/ADNEXA: Anteverted uterus. A few scattered small bilateral pelvic phleboliths. Normal size ov asad are present axial image 61. Scattered small bilateral pelvic phleboliths. LYMPH NODES: No greater than 1cm abdominal or pelvic lymph nodes are appreciated. OSSEOUS STRUCTURES: Slight scoliotic curvature. OTHER: No significant additional abnormality is seen. IMPRESSION: 1. Fairly long segment acute colitis from the cecum through the proximal sigmoid colon. Differential includes infectious and/or inflammatory etiologies. Ischemic etiology felt much less likely. Correlat e clinically. 2. Hepatomegaly with marked fatty infiltrative hepatocellular disease is noted. 3. Bilateral nonobstructing nephrolithiasis noted.
[2022-07-24 11:37] LABS: Appearance,Urine Clear (Clear); Bilirubin,Urine Negative (Negative); Blood,Urine Moderate (Negative); Color,Urine Light Yellow; Glucose,Urine (UA) Negative (Negative); Hyaline Casts,Urine 23 /lpf (0-2); Ketones,Urine 4+ (Negative); Leukocyte Esterase,Urine Negative (Negative); Mucus,Urine Rare /hpf; Nitrite,Urine Negative (Negative); Protein,Urine 3+ (Negative); RBC,Urine 1 /hpf (0-5); Specific Gravity,Urine 1.018 (1.001-1.035); Squamous Epithelial Cell,Urine 2 /hpf (0-4); Urobilinogen,Urine <2.0 mg/dL (<2.0); WBC,Urine <1 /hpf (0-5)
[2022-07-24] MEDS ORDERED: NALOXONE 0.4 MG/ML 1 ML VIAL IV PRN (12:17)
[2022-07-24] MEDS ORDERED: ACETAMINOPHEN TAB 325 MG TAB PO PRN (12:20)
[2022-07-24 12:30] LABS: Alcohol <10 mg/dL
[2022-07-24] MEDS ORDERED: PIPERACILLIN-TAZOBACTAM 3.375 GM in SODIUM CHLORIDE 0.9% 100 ML IVPB ONE (12:30)
[2022-07-24] MEDS ORDERED: SODIUM CHLORIDE 0.9% 1,000 ML IV SCH (15:00)
[2022-07-24] MEDS: ONDANSETRON 4 MG/2 ML VIAL IVP PRN ×2 (15:02→23:17)
--- NOTE | 2022-07-24 16:07 | P.CONS ---
History of Present Illness - Reason for Consult Consult date: 07/24/22 Coffee-ground emesis Requesting physician: Mary Keane - Chief Complaint Nausea and vomiting - History of Present Illness This is a pleasant 27-year-old female with a history of heavy alcohol abuse since age of 15 up until about 2 weeks ago who presented to the emergency department for nausea and vomiting since 1 AM this morning. Patient states that she vomited for about 2 hours and then she did notice some bright red blood in her emesis followed then by some coffee-ground emesis. She came to emergency department for further evaluation. Patient states she is continuing to feel nauseated and vomiting, mostly just water and some coffee-ground emesis at times. She is stating that she has some abdominal pain more in the right upper quadrant to mid abdomen. She denies any diarrhea, no fevers, no recent sick contacts and no recent traveling. She had a CT of the abdomen and pelvis as part of her workup and that reported a fairly long segment acute colitis from cecum through proximal sigmoid colon. Differential includes infectious and/or inflammatory etiology. Ischemic etiology felt much less likely. Correlate clinically. Hepatomegaly with marked fatty infiltrative hepatocellular disease as noted. Bilateral nonobstructing nephrolithiasis noted. Gastroenterology was consulted for coffee-ground emesis. Patient was noted to have elevated LFTs, elevated lactic acid and potassium. Patient denies any previous history of known liver disease or elevated liver enzymes in the past. Denies any history of colitis. No history of acid reflux or peptic ulcer disease. No previous EGD colonoscopy. Denies any history of gallbladder disease. Admitting labs WBC 13.9 hemoglobin 13.6 hematocrit 48 platelet count 386,000 sodium 142 potassium 5.3 BUN 10 creatinine 1.0 lactic acid 6.2 total bilirubin 0.9 AST 183 ALT 102 alkaline phosphatase 295 amylase 60 lipase 90 serum alcohol less than 10 Review of Systems REVIEW OF SYSTEMS: CARDIOPULMONARY: No chest pain or shortness of breath. Gastrointestinal: Right upper quadrant/mid abdominal pain. Nausea with vomiting, reports of coffee-ground emesis. No diarrhea. No rectal bleeding, or melena. GENITOURINARY: No dysuria or hematuria. MUSCULOSKELETAL: Reports normal range of motion. SKIN: No rashes. No jaundice. ENDOCRINE: No chills, fevers. No excessive weight gain or loss. No polydipsia or polyuria. PSYCHIATRIC: Unremarkable. NEUROLOGY: No change in mental status. Denies dizziness, headache. ENT: Vision unremarkable. CONSTITUTIONAL: No recent weight loss. No fever, chills, night sweats. Past Medical History Past Medical History: No Reported History History of Any Multi-Drug Resistant Organisms: None Reported Past Surgical History: Adenoidectomy, Tonsillectomy Additional Past Surgical History / Comment(s): NOSE SURGERY DUE TO IT BEING BROKEN. Past Anesthesia/Blood Transfusion Reactions: No Reported Reaction Past Psychological History: Anxiety Smoking Status: Former smoker Past Alcohol Use History: None Reported Past Drug Use History: None Reported - Past Family History Mother Additional Family Medical History / Comment(s): Skin cancer Medications and Allergies Home Medications Medication Instructions Recorded Confirmed Type Sertraline [Zoloft] 50 mg PO DAILY 30 Days #30 tab 07/06/22 07/24/22 Rx Gravol 50 - 100 mg PO Q4H PRN MDD 8 tabs 07/24/22 07/24/22 History Ibuprofen [Motrin Ib] 600 mg PO Q8H PRN 07/24/22 07/24/22 History Allergies Allergy/AdvReac Type Severity Reaction Status Date / Time No Known Allergies Allergy Verified 07/24/22 12:42 Physical Exam Vitals: Vital Signs Temp Pulse Pulse Resp BP BP Pulse Ox 07/24/22 14:20 98 F 138 H 18 123/87 100 07/24/22 14:07 100 18 116/78 100 07/24/22 09:54 97.8 F 104 H 19 125/94 98 07/24/22 09:05 98 F 130 H 18 120/87 100 Intake and Output 07/23/22 07/24/22 07/24/22 22:59 06:59 14:59 Other: Weight 58.967 kg General appearance: The patient is alert, oriented, appears in no acute distress. HET: Head is normocephalic and atraumatic. Conjunctiva pink. Sclera anicteric. Neck: Supple without lymphadenopathy. Trachea midline. Heart: S1 S2. Regular rate and rhythm. Lungs: Clear to auscultation. Abdomen: Soft, right upper quadrant tenderness, nondistended with bowel sounds. No guarding or rigidity. Skin: No rashes. No jaundice. Extremities: Normal skin color and turgor. No pedal edema. Neurological: No focal deficits. Alert and oriented x3. Results CBC & Chem 7: 07/24/22 09:52 07/24/22 09:52 Labs: Abnormal Lab Results - Last 24 Hours (Table) 07/24/22 07/24/22 07/24/22 Range/Units 09:52 09:52 09:52 WBC 13.9 H (3.8-10.6) k/uL RBC 5.56 H (3.80-5.40) m/uL Hct 48.2 H (34.0-46.0) % MCH 24.4 L (25.0-35.0) pg MCHC 28.2 L (31.0-37.0) g/dL RDW 17.4 H (11.5-15.5) % Neutrophils # 12.5 H (1.3-7.7) k/uL Lymphocytes # 0.6 L (1.0-4.8) k/uL Potassium 5.3 H (3.5-5.1) mmol/L Chloride 97 L (98-107) mmol/L Carbon Dioxide 7 L* (22-30) mmol/L Plasma Lactic Acid Rui 6.2 H* (0.7-2.0) mmol/L AST 183 H (14-36) U/L ALT 102 H (4-34) U/L Alkaline Phosphatase 295 H (38-126) U/L Total Protein 10.1 H (6.3-8.2) g/dL Albumin 6.0 H (3.5-5.0) g/dL Urine Protein (Negative) Urine Ketones (Negative) Urine Blood (Negative) Hyaline Casts (0-2) /lpf Urine Mucus (None) /hpf 07/24/22 Range/Units 10:55 WBC (3.8-10.6) k/uL RBC (3.80-5.40) m/uL Hct (34.0-46.0) % MCH (25.0-35.0) pg MCHC (31.0-37.0) g/dL RDW (11.5-15.5) % Neutrophils # (1.3-7.7) k/uL Lymphocytes # (1.0-4.8) k/uL Potassium (3.5-5.1) mmol/L Chloride (98-107) mmol/L Carbon Dioxide (22-30) mmol/L Plasma Lactic Acid Rui (0.7-2.0) mmol/L AST (14-36) U/L ALT (4-34) U/L Alkaline Phosphatase (38-126) U/L Total Protein (6.3-8.2) g/dL Albumin (3.5-5.0) g/dL Urine Protein 3+ H (Negative) Urine Ketones 4+ H (Negative) Urine Blood Moderate H (Negative) Hyaline Casts 23 H (0-2) /lpf Urine Mucus Rare H (None) /hpf Assessment and Plan (1) Coffee ground emesis Narrative/Plan: 27-year-old female with nausea vomiting and coffee-ground emesis since 1 AM with complaints of abdominal pain. CT abdomen and pelvis shows colitis. Patient has no sick contacts denies any fevers or chills. Patient has had a long history of alcohol abuse states her last drink was about 2 weeks ago. Unclear etiology of nausea and vomiting and colitis, possible etiology includes infectious versus inflammatory. Consider possibility of nausea and vomiting related to withdrawal symptoms. Hemoglobin stable. Continue to treat symptomatically. Possible endoscopic evaluation if patient continues with coffee-ground emesis with drop in hemoglobin. Continue PPI twice a day, antiemetics. Current Visit: Yes Status: Acute Code(s): K92.0 - HEMATEMESIS SNOMED Code(s): 77608412 (2) Elevated LFTs Narrative/Plan: Elevated LFTs likely secondary to underlying alcohol abuse and acute alcoholic hepatitis. CT abdomen and pelvis shows hepatomegaly and fatty infiltrate of liver. Current Visit: Yes Status: Acute Code(s): R79.89 - OTHER SPECIFIED ABNORMAL FINDINGS OF BLOOD CHEMISTRY SNOMED Code(s): 430307711 (3) Alcohol abuse Current Visit: Yes Status: Acute Code(s): F10.10 - ALCOHOL ABUSE, UNCOMPLICATED SNOMED Code(s): 17265681 (4) Colitis Current Visit: Yes Status: Acute Code(s): K52.9 - NONINFECTIVE GASTROENTERITIS AND COLITIS, UNSPECIFIED SNOMED Code(s): 60324982 (5) Lactic acidosis Current Visit: Yes Status: Acute Code(s): E87.2 - ACIDOSIS * DO NOT USE * SNOMED Code(s): 45997244 Plan: 1. Continue symptomatic and supportive care 2. Antiemetics as ordered 3. Increase Protonix to 40 mg twice a day 4. Monitor patient for alcohol withdrawal symptoms 5. Repeat CBC, CMP tomorrow 6. Acute hepatitis panel ordered, will order CRP and sed rate 7. Patient may have clear liquid diet, nothing by mouth after midnight 8. Further recommendations forthcoming based on clinical course Thank you for this consultation, we will continue to follow. Dr. Michelet De La Torre I agree with the dictator's note, documented as a scribe by Johanne Farr.
[2022-07-24] MEDS: METOCLOPRAMIDE 5 MG/ML 2 ML VIAL IVP PRN (18:05)
[2022-07-24] MEDS: PANTOPRAZOLE 40 MG/10 ML VIAL IV SCH (20:55)
[2022-07-24] MEDS: PIPERACILLIN-TAZOBACTAM 3.375 GM in SODIUM CHLORIDE 0.9% 100 ML IVPB SCH (20:55)
[2022-07-24] MEDS: MORPHINE SULFATE 2 MG/ML SYRINGE IVP PRN (20:57)
[2022-07-25] MEDS ORDERED: LACTATED RINGERS 1,000 ML IV SCH (00:15)
--- NOTE | 2022-07-25 00:16 | P.HPIM ---
History of Present Illness H&P Date: 07/24/22 Chief Complaint: Coffee-ground vomiting Patient is a 27-year-old female with a known history of anxiety, prior history of smoking and alcohol abuse and last drink about a week ago presents to ER with complaints of nausea and vomiting started around 1 AM last night. Patient started having vomiting with bright red blood initially followed by coffee- ground emesis this morning. Otherwise denied any complaints of fever or chills. No diarrhea or abdominal pain. Denies any prior history of EGD. Patient states that she does take Zoloft for depression and did take extra pill yesterday. Zoloft is newly prescribed for her. Patient states that her last drink was about a week ago and she also admits to ER physician that she had several white claws last night. Denies any complaints of chest pain or shortness of breath. No leg swelling. No recent illnesses or sick contacts. CT of the abdomen and pelvis showed fairly long segment acute colitis from the cecum through the proximal sigmoid colon. Differential includes infectious/inflammatory etiology. Ischemic etiology felt much less likely. Correlate clinically. Hepatomegaly with marked fatty infiltrate to hepatocellular disease is noted. Bilateral nonobstructing nephrolithiasis noted. Laboratory data showed WBC 13.9 hemoglobin 13.6 and platelets 386 Sodium 142 potassium 5.3 chloride 97 bicarb is 7 and lactic acid 6.2 on admission. Anion gap 38. AST 183 ALT 102 and alk phos 295, CRP less than 0.5 lipase 91 and cortisol 83. Urinalysis is negative for infection showed 4+ ketones. Serum alcohol level is less than 10. Review of Systems Constitutional: Patient denies any fever or chills . no Generalized weakness. Abdomen: Patient does complain of nausea and vomiting. No abdominal pain. Cardiovascular: Patient denies any chest pain or short of breath no palpitations. Respiratory: patient denied any cough . no sputum production. No shortness of breath Neurologic: Patient denied any numbness or tingling headache. Musculoskeletal: Patient denies any complaints of joint swelling or deformity. Skin: Negative Psychiatric: Negative Endocrine: No heat or cold intolerance. No recent weight gain. Genitourinary: No dysuria or hematuria. All other 14 point ROS negative except the above Past Medical History Past Medical History: No Reported History History of Any Multi-Drug Resistant Organisms: None Reported Past Surgical History: Adenoidectomy, Tonsillectomy Additional Past Surgical History / Comment(s): NOSE SURGERY DUE TO IT BEING BROKEN. Past Anesthesia/Blood Transfusion Reactions: No Reported Reaction Past Psychological History: Anxiety Smoking Status: Former smoker Past Alcohol Use History: None Reported Past Drug Use History: None Reported - Past Family History Mother Additional Family Medical History / Comment(s): Skin cancer Medications and Allergies Home Medications Medication Instructions Recorded Confirmed Type Sertraline [Zoloft] 50 mg PO DAILY 30 Days #30 tab 07/06/22 07/24/22 Rx Gravol 50 - 100 mg PO Q4H PRN MDD 8 tabs 07/24/22 07/24/22 History Ibuprofen [Motrin Ib] 600 mg PO Q8H PRN 07/24/22 07/24/22 History Allergies Allergy/AdvReac Type Severity Reaction Status Date / Time No Known Allergies Allergy Verified 07/24/22 12:42 Physical Exam Vitals: Vital Signs Temp Pulse Resp BP Pulse Ox 07/24/22 14:07 100 18 116/78 100 07/24/22 09:54 97.8 F 104 H 19 125/94 98 07/24/22 09:05 98 F 130 H 18 120/87 100 Intake and Output 07/23/22 07/24/22 07/24/22 22:59 06:59 14:59 Other: Weight 58.967 kg PHYSICAL EXAMINATION: Patient is lying in the bed comfortably, no acute distress, awake alert and oriented.. HEENT: Normocephalic. Neck is supple. Pupils reactive. Nostrils clear. Oral cavity is moist. Neck reveals no JVD, carotid bruits, or thyromegaly. CHEST EXAMINATION: Trachea is central. Symmetrical expansion. Lung davalos clear to auscultation and percussion. CARDIAC: Normal S1, S2 with no gallops. No murmurs ABDOMEN: Soft. Bowel sounds present. Nontender. No organomegaly. No abdominal bruits. Extremities: reveal no edema. No clubbing or cyanosis Neurologically awake, alert, oriented x3 with well-coordinated movements. No focal deficits noted Skin: No rash or skin lesions. Psychiatric: Coperative. Nonsuicidal, Musculoskeletal: No joint swelling or deformity. Normal range of motion. Results CBC & Chem 7: 07/24/22 09:52 07/24/22 09:52 Labs: Abnormal Lab Results - Last 24 Hours (Table) 07/24/22 07/24/22 07/24/22 Range/Units 09:52 09:52 09:52 WBC 13.9 H (3.8-10.6) k/uL RBC 5.56 H (3.80-5.40) m/uL Hct 48.2 H (34.0-46.0) % MCH 24.4 L (25.0-35.0) pg MCHC 28.2 L (31.0-37.0) g/dL RDW 17.4 H (11.5-15.5) % Neutrophils # 12.5 H (1.3-7.7) k/uL Lymphocytes # 0.6 L (1.0-4.8) k/uL Potassium 5.3 H (3.5-5.1) mmol/L Chloride 97 L (98-107) mmol/L Carbon Dioxide 7 L* (22-30) mmol/L Plasma Lactic Acid Rui 6.2 H* (0.7-2.0) mmol/L AST 183 H (14-36) U/L ALT 102 H (4-34) U/L Alkaline Phosphatase 295 H (38-126) U/L Total Protein 10.1 H (6.3-8.2) g/dL Albumin 6.0 H (3.5-5.0) g/dL Urine Protein (Negative) Urine Ketones (Negative) Urine Blood (Negative) Hyaline Casts (0-2) /lpf Urine Mucus (None) /hpf 07/24/22 Range/Units 10:55 WBC (3.8-10.6) k/uL RBC (3.80-5.40) m/uL Hct (34.0-46.0) % MCH (25.0-35.0) pg MCHC (31.0-37.0) g/dL RDW (11.5-15.5) % Neutrophils # (1.3-7.7) k/uL Lymphocytes # (1.0-4.8) k/uL Potassium (3.5-5.1) mmol/L Chloride (98-107) mmol/L Carbon Dioxide (22-30) mmol/L Plasma Lactic Acid Rui (0.7-2.0) mmol/L AST (14-36) U/L ALT (4-34) U/L Alkaline Phosphatase (38-126) U/L Total Protein (6.3-8.2) g/dL Albumin (3.5-5.0) g/dL Urine Protein 3+ H (Negative) Urine Ketones 4+ H (Negative) Urine Blood Moderate H (Negative) Hyaline Casts 23 H (0-2) /lpf Urine Mucus Rare H (None) /hpf Thrombosis Risk Factor Assmnt - DVT/VTE Prophylaxis DVT/VTE Prophylaxis: Mechanical Prophylaxis ordered Assessment and Plan Assessment: Coffee-ground emesis possible acute alcoholic gastritis Acute long-segment colitis from cecum to the proximal sigmoid colon. Possible inflammatory versus infectious. Anion gap metabolic acidosis. Lactic acidosis 6.2 on admission Elevated liver enzymes Severe alcohol abuse Anxiety Prior history of smoking GI and DVT prophylaxis with PPI and SCDs Plan: Patient will be continued on IV hydration and nothing by mouth. Continue with IV PPI and gastroenterology service was consulted. Continue to monitor H&H and liver enzymes. Acute hepatitis panel was ordered. Continue with symptomatic management for nausea and follow-up closely. Time with Patient: Greater than 30
[2022-07-25] MEDS: MORPHINE SULFATE 2 MG/ML SYRINGE IVP PRN (03:33)
[2022-07-25] MEDS: PIPERACILLIN-TAZOBACTAM 3.375 GM in SODIUM CHLORIDE 0.9% 100 ML IVPB SCH ×2 (03:33→12:45)
[2022-07-25] MEDS: METOCLOPRAMIDE 5 MG/ML 2 ML VIAL IVP PRN ×2 (03:35→12:51)
[2022-07-25 04:44] LABS: ALT 80 U/L (4-34); AST 97 U/L (14-36); African American GFR (CKD) >90 (>60 ml/min/1.73 sqM); Albumin 5.2 g/dL (3.5-5.0); Albumin/Globulin Ratio 1.7; Alkaline Phosphatase 209 U/L (38-126); Anion Gap 22 mmol/L; Blood Urea Nitrogen 11 mg/dL (7-17); Calcium 9.1 mg/dL (8.4-10.2); Carbon Dioxide 14 mmol/L (22-30); Chloride 100 mmol/L (98-107); Globulin 3.1 g/dL; Glucose 96 mg/dL (74-99); Non-African American GFR(CKD) >90 (>60 ml/min/1.73 sqM); Potassium 4.5 mmol/L (3.5-5.1); Sodium 136 mmol/L (137-145); Total Bilirubin 1.2 mg/dL (0.2-1.3); Total Protein 8.3 g/dL (6.3-8.2)
[2022-07-25 05:34] LABS: Anisocytosis Slight; HCT 39.1 % (34.0-46.0); HGB 11.4 gm/dL (11.4-16.0); Hypochromasia Marked; MCH 24.9 pg (25.0-35.0); MCHC 29.2 g/dL (31.0-37.0); Mean Platelet Volume 8.6; Platelet Count 230 k/uL (150-450); RDW 16.7 % (11.5-15.5); WBC 7.8 k/uL (3.8-10.6)
[2022-07-25 06:50] LABS: Lymphocytes # (M) 1.17 k/uL (1.0-4.8); Monocytes # (M) 0.39 k/uL (0-1.0); Neutrophils # (M) 6.24 k/uL (1.3-7.7); Neutrophils % (M) 80 %; Nucleated Red Blood Cells 0 /100 WBC (0-0); Total Cells Counted 100
[2022-07-25 07:43] VITALS: RESP 16
--- NOTE | 2022-07-25 08:37 | P.PN ---
Subjective Progress Note Date: 07/25/22 Principal diagnosis: Intractable nausea and vomiting with coffee-ground emesis Patient seen and examined today as a follow-up for nausea and vomiting with coffee-ground emesis. Patient states she continued to have nausea and vomiting all throughout the night with coffee-ground emesis. Since midnight she's been nothing by mouth and has been dry heaving. No diarrhea. States she still having abdominal pain mostly in the mid to right upper quadrant. States actually her last bowel movement has been several days. Due to continued vomiting will proceed with EGD today. Gallbladder ultrasound pending. Objective - Vital Signs Vital signs: Vital Signs Temp 98.3 F 07/25/22 07:28 Pulse 79 07/25/22 07:28 Resp 16 07/25/22 07:28 BP 124/81 07/25/22 07:28 Pulse Ox 100 07/25/22 07:28 FiO2 Intake & Output 07/24/22 07/25/22 07/25/22 18:59 06:59 18:59 Weight 58.967 kg Other: # Voids 1 - Exam General appearance: The patient is alert, oriented, appears in no acute distress. HET: Head is normocephalic and atraumatic. Conjunctiva pink. Sclera anicteric. Neck: Supple without lymphadenopathy. Trachea midline. Heart: S1 S2. Regular rate and rhythm. Lungs: Clear to auscultation. Abdomen: Soft, right upper quadrant/mid abdomen tenderness, nondistended with bowel sounds. No guarding or rigidity. Skin: No rashes. No jaundice. Extremities: Normal skin color and turgor. No pedal edema. Neurological: No focal deficits. Alert and oriented x3. - Labs CBC & Chem 7: 07/25/22 04:08 07/25/22 04:08 Labs: Abnormal Lab Results - Last 24 Hours (Table) 07/24/22 07/24/22 07/24/22 Range/Units 09:52 09:52 09:52 WBC 13.9 H (3.8-10.6) k/uL RBC 5.56 H (3.80-5.40) m/uL Hct 48.2 H (34.0-46.0) % MCH 24.4 L (25.0-35.0) pg MCHC 28.2 L (31.0-37.0) g/dL RDW 17.4 H (11.5-15.5) % Neutrophils # 12.5 H (1.3-7.7) k/uL Lymphocytes # 0.6 L (1.0-4.8) k/uL Sodium (137-145) mmol/L Potassium 5.3 H (3.5-5.1) mmol/L Chloride 97 L (98-107) mmol/L Carbon Dioxide 7 L* (22-30) mmol/L Plasma Lactic Acid Rui 6.2 H* (0.7-2.0) mmol/L AST 183 H (14-36) U/L ALT 102 H (4-34) U/L Alkaline Phosphatase 295 H (38-126) U/L Total Protein 10.1 H (6.3-8.2) g/dL Albumin 6.0 H (3.5-5.0) g/dL Urine Protein (Negative) Urine Ketones (Negative) Urine Blood (Negative) Hyaline Casts (0-2) /lpf Urine Mucus (None) /hpf 07/24/22 07/25/22 07/25/22 Range/Units 10:55 04:08 04:08 WBC (3.8-10.6) k/uL RBC (3.80-5.40) m/uL Hct (34.0-46.0) % MCH 24.9 L (25.0-35.0) pg MCHC 29.2 L (31.0-37.0) g/dL RDW 16.7 H (11.5-15.5) % Neutrophils # (1.3-7.7) k/uL Lymphocytes # (1.0-4.8) k/uL Sodium 136 L (137-145) mmol/L Potassium (3.5-5.1) mmol/L Chloride (98-107) mmol/L Carbon Dioxide 14 L (22-30) mmol/L Plasma Lactic Acid Rui (0.7-2.0) mmol/L AST 97 H (14-36) U/L ALT 80 H (4-34) U/L Alkaline Phosphatase 209 H (38-126) U/L Total Protein 8.3 H (6.3-8.2) g/dL Albumin 5.2 H (3.5-5.0) g/dL Urine Protein 3+ H (Negative) Urine Ketones 4+ H (Negative) Urine Blood Moderate H (Negative) Hyaline Casts 23 H (0-2) /lpf Urine Mucus Rare H (None) /hpf Assessment and Plan (1) Coffee ground emesis Narrative/Plan: 27-year-old female with nausea vomiting and coffee-ground emesis since 1 AM with complaints of abdominal pain. CT abdomen and pelvis shows colitis. Patient has no sick contacts denies any fevers or chills. Patient has had a long history of alcohol abuse states her last drink was about 2 weeks ago. Unclear etiology of nausea and vomiting and colitis, possible etiology includes infectious versus i nflammatory. Consider possibility of nausea and vomiting related to withdrawal symptoms. Hemoglobin stable. Continue to treat symptomatically. Possible endoscopic evaluation if patient continues with coffee-ground emesis with drop in hemoglobin. Continue PPI twice a day, antiemetics. Current Visit: Yes Status: Acute Code(s): K92.0 - HEMATEMESIS SNOMED Code(s): 71793638 (2) Elevated LFTs Narrative/Plan: Elevated LFTs likely secondary to underlying alcohol abuse and acute alcoholic hepatitis. CT abdomen and pelvis shows hepatomegaly and fatty infiltrate of liver. Current Visit: Yes Status: Acute Code(s): R79.89 - OTHER SPECIFIED ABNORMAL FINDINGS OF BLOOD CHEMISTRY SNOMED Code(s): 551273697 (3) Alcohol abuse Current Visit: Yes Status: Acute Code(s): F10.10 - ALCOHOL ABUSE, UNCOMPLICATED SNOMED Code(s): 28976562 (4) Colitis Current Visit: Yes Status: Acute Code(s): K52.9 - NONINFECTIVE GASTROENTERITIS AND COLITIS, UNSPECIFIED SNOMED Code(s): 16671462 (5) Lactic acidosis Narrative/Plan: Resolved Current Visit: Yes Status: Acute Code(s): E87.2 - ACIDOSIS * DO NOT USE * SNOMED Code(s): 06927236 Plan: 1. Continue symptomatic and supportive care 2. Antiemetics as ordered 3. Protonix to 40 mg twice a day. Avoid NSAIDs 4. Monitor patient for alcohol withdrawal symptoms 5. Acute hepatitis panel ordered 6. Keep nothing by mouth, patient scheduled for EGD this afternoon 7. Gallbladder ultrasound ordered/pending 8. Further recommendations forthcoming following EGD Thank you for this consultation, we will sign off at this time as there will be no gastroenterology available through the weekend. Dr. Michelet De La Torre I agree with the dictator's note, documented as a scribe by Johanne Farr.
[2022-07-25] MEDS ORDERED: ONDANSETRON 4 MG/2 ML VIAL ONE (08:55)
[2022-07-25] MEDS ORDERED: IV FLUID CONTINUATION 1,000 ML IV ONE (08:55)
[2022-07-25] MEDS ORDERED: PROPOFOL 10 MG/ML 20 ML VIAL IV ONE (08:55)
[2022-07-25] MEDS ORDERED: fentaNYL (PF) 50 MCG/ML 2 ML AMP ONE (08:55)
[2022-07-25] MEDS ORDERED: MIDAZOLAM 2 MG/2 ML VIAL ONE (08:55)
[2022-07-25] MEDS ORDERED: LIDOCAINE 2% INJ 20 MG/ML (2 ML VIAL) ONE (08:55)
[2022-07-25] MEDS ORDERED: MULTIVITAMINS, THERA 1 EACH TAB PO SCH (09:00)
[2022-07-25] MEDS ORDERED: THIAMINE 100 MG TAB PO SCH (09:00)
[2022-07-25] MEDS ORDERED: PANTOPRAZOLE 40 MG/10 ML VIAL IV SCH (09:00)
[2022-07-25] MEDS ORDERED: SERTRALINE 50 MG TAB PO SCH (09:00)
--- NOTE | 2022-07-25 09:09 | US ---
EXAMINATION TYPE: US gallbladder DATE OF EXAM: 07/25/2022 COMPARISON: CT dated 07/24/2022 CLINICAL INDICATION: Female, 27 years old with history of abdominal pain, elevated LFT's; TECHNIQUE: Multiple sonographic images of the right upper quadrant are obtained. FINDINGS: EXAM MEASUREMENTS: Liver Length: 15.5 cm Gallbladder Wall: 0.3 cm CBD: 5.5 mm Right Kidney: 8.4 x 3.8 x 5.8 cm Pancreas: visualized portions wnl Liver: Somewhat echogenic periportal fat. Gallbladder: No stones seen, mildly distended at 8.9 cm Evidence for sonographic Croft's sign: Yes CBD: Upper limits of normal in caliber. Right Kidney: No hydronephrosis or masses seen IMPRESSION: 1. Sonographic Croft's sign is reported positive. However, no gallstones or ancillary imaging findin gs of acute cholecystitis are seen at this time. 2. Bile duct caliber at the upper limits of normal at 5.5 mm. 3. The low-density appearance to the liver on patient's 07/24/2022 CT does not seem to correspond to s ignificant fatty infiltration on the present exam. Consider the possibility of hepatitis.
--- NOTE | 2022-07-25 09:15 | P.PCN ---
Date of Procedure: 07/25/22 Procedure(s) Performed: BRIEF HISTORY: Patient is a 27-year-old, pleasant, white female scheduled for an upper endoscopy as a part of evaluation of multiple episodes of coffee-ground emesis yesterday morning. She had at least 10 episodes of cough. Emesis. Has been continuous and epigastric pain also. History of heavy alcohol use for the last 6-7 years. PROCEDURE PERFORMED: Esophagogastroduodenoscopy with biopsy. PREOPERATIVE DIAGNOSIS: Coffee-ground emesis. IV sedation per anesthesia. PROCEDURE: After informed consent was obtained, the patient was brought into the endoscopy unit. IV sedation was administered by Anesthesia under continuous monitoring. Initially the Olympus GIF-140 video endoscope was inserted into the mouth. Esophagus intubated without any difficulty. It was gradually advanced into the stomach and duodenum and carefully examined. The bulb and the second part of the duodenum appeared normal. The scope at this time was withdrawn to the stomach, adequately insufflated with air, and upon careful examination, mucosa of the antrum, body had linear areas of erythema consistent with gastritis and biopsies were done from this area. Mucosa of the, cardia and the fundus appeared normal. The scope was then withdrawn into the esophagus. Small hiatal hernia noted. The GE junction was located at 36 cm from the incisors. The esophagus had severe is a erosive esophagitis with linear areas of erosions with exudate and biopsies were done from this area. The proximal cervical esophagus appeared normal. The patient tolerated the procedure well. IMPRESSION: 1. Severe erosive esophagitis involving the mid and distal esophagus with multiple erosions and exudate. 2. Diffuse gastritis. RECOMMENDATIONS: The findings of this examination were discussed with the patias well as a family. She'll be continued on Protonix 40 mg twice daily. Diet will be advanced as tolerated. Advised to stop drinking alcohol. Follow up in office in 2-3 weeks following discharge from the hospital
[2022-07-25] MEDS: PANTOPRAZOLE 40 MG/10 ML VIAL IV SCH (09:45)
[2022-07-25 11:51] VITALS: BP 122/81; PULSE 65; TEMP 98.2
[2022-07-29 02:55] LABS: Hepatitis A Antibody IgM Nonreactive (Nonreactive); Hepatitis B Core IgM Nonreactive (Nonreactive); Hepatitis B Surface Antigen Nonreactive (Nonreactive); Hepatitis C IgG Antibody Nonreactive (Nonreactive)
--- NOTE | 2022-08-03 18:53 | P.DS ---
Providers Date of admission: 07/24/22 11:55 Expected date of discharge: 07/25/22 Attending physician: Baldev Lutz Consults: 07/24/22 12:17 Consult Physician Urgent Consulting Provider: Heidi De La Torre Consult Reason/Comments: Coffee ground emesis, lactic acidosis, colitis Do you want consulting provider notified?: Yes Primary care physician: Darrius Cornelius [facility] Hospital Course: Patient is a 27-year-old female with a known history of anxiety, prior history of smoking and alcohol abuse and last drink about a week ago presents to ER with complaints of nausea and vomiting started around 1 AM last night. Patient started having vomiting with bright red blood initially followed by coffee- ground emesis this morning. Otherwise denied any complaints of fever or chills. No diarrhea or abdominal pain. Denies any prior history of EGD. Patient states that she does take Zoloft for depression and did take extra pill yesterday. Zoloft is newly prescribed for her. Patient states that her last drink was about a week ago and she also admits to ER physician that she had several white claws last night. Denies any complaints of chest pain or shortness of breath. No leg swelling. No recent illnesses or sick contacts. CT of the abdomen and pelvis showed fairly long segment acute colitis from the cecum through the proximal sigmoid colon. Differential includes infectious/infl ammatory etiology. Ischemic etiology felt much less likely. Correlate clinically. Hepatomegaly with marked fatty infiltrate to hepatocellular disease is noted. Bilateral nonobstructing nephrolithiasis noted. Laboratory data showed WBC 13.9 hemoglobin 13.6 and platelets 386 Sodium 142 potassium 5.3 chloride 97 bicarb is 7 and lactic acid 6.2 on admission. Anion gap 38. AST 183 ALT 102 and alk phos 295, CRP less than 0.5 lipase 91 and cortisol 83. Urinalysis is negative for infection showed 4+ ketones. Serum alcohol level is less than 10. PROCEDURE PERFORMED: Esophagogastroduodenoscopy with biopsy. PREOPERATIVE DIAGNOSIS: Coffee-ground emesis. IMPRESSION: 1. Severe erosive esophagitis involving the mid and distal esophagus with multiple erosions and exudate. 2. Diffuse gastritis. RECOMMENDATIONS: The findings of this examination were discussed with the patias well as a family. She'll be continued on Protonix 40 mg twice daily. Diet will be advanced as tolerated. Advised to stop drinking alcohol. Follow up in office in 2-3 weeks following discharge from the hospital Patient Condition at Discharge: Good Plan - Discharge Summary Discharge Rx Participant: Yes New Discharge Prescriptions: New Thiamine [Vitamin B-1] 100 mg PO DAILY tab Pantoprazole Sodium [Protonix] 40 mg PO BID #60 tab Ondansetron [Zofran] 4 mg PO Q8HR PRN 4 Days #10 tab PRN Reason: Nausea Continue Sertraline [Zoloft] 50 mg PO DAILY 30 Days #30 tab Ibuprofen [Motrin Ib] 600 mg PO Q8H PRN PRN Reason: Pain Gravol 50 - 100 mg PO Q4H PRN MDD 8 tabs PRN Reason: [facility] Sickness Discharge Medication List Sertraline [Zoloft] 50 mg PO DAILY 30 Days #30 tab 07/06/22 [Rx] Gravol 50 - 100 mg PO Q4H PRN MDD 8 tabs 07/24/22 [History] Ibuprofen [Motrin Ib] 600 mg PO Q8H PRN 07/24/22 [History] Ondansetron [Zofran] 4 mg PO Q8HR PRN 4 Days #10 tab 07/25/22 [Rx] Pantoprazole Sodium [Protonix] 40 mg PO BID #60 tab 07/25/22 [Rx] Thiamine [Vitamin B-1] 100 mg PO DAILY tab 07/25/22 [Rx] Follow up Appointment(s)/Referral(s): Taylor Sigala NPC [REFERRING] - 2 Weeks (Gastroenterology - office is closed, please call to set up follow up appointment. Office number [phone].) Suzanne Ramos MD [REFERRING] - 1-2 days (office is closed, please call to schedule a follow up appointment [phone]) Patient Instructions/Handouts: Ondansetron (By mouth), Pantoprazole (By mouth), Hiatal Hernia (DC), Gastritis (DC), Esophagitis (DC) Discharge Disposition: HOME SELF-CARE
== END 2022-07-25 16:16 | disposition home or self-care (01) ==
LOC: EC 08:59 → 5NMEDONC 11:55 → INTOOBSV 11:55 → 5NMEDONC 13:58 → UNDODISIN 07-25 16:16
PROVIDERS: ADMIT Internal Medicine; ATTEND Internal Medicine
DX: K29.50 Unspecified chronic gastritis without bleeding (principal); K20.90 Esophagitis, unspecified without bleeding; K52.9 Noninfective gastroenteritis and colitis, unspecified; E87.20 Acidosis, unspecified; R79.89 Other specified abnormal findings of blood chemistry; F10.20 Alcohol dependence, uncomplicated; F41.9 Anxiety disorder, unspecified; R74.8 Abnormal levels of other serum enzymes; F32.A Depression, unspecified; Z87.891 Personal history of nicotine dependence; Z79.899 Other long term (current) drug therapy; Z80.8 Family history of malignant neoplasm of other organs or systems
CPT/HCPCS: 96361 ×3; 96365; 96366 ×2; 96376 ×2; 96375; 99285; 36415; 88305; 80053 ×2; 80074; 85652; 82533; 82150; 83605; 83690; 85025 ×2; 86140; 81001; 88312; 81025; 87040; 76705; 74177; 43239; G0378 ×2; G0480; J2543 ×2; J2250; J2765 ×2; J2405 ×2; J3010; J2270 ×2; J2704; C9113 ×2; Q9967; J2001; 80320